=== PATIENT | male | born 1960 | race Hispanic/Latino ===

== ENCOUNTER 2017-11-18 16:20 | Inpatient (IN) | payer MEDICARE ==
[2017-11-18 16:41] VITALS: BMI 19.5
[2017-11-18] MEDS ORDERED: Docusate 100 MG CAP PO PRN (17:06)
[2017-11-18] MEDS ORDERED: Calcium Carbonate 500 MG ChewTAB PO PRN (17:06)
[2017-11-18] MEDS ORDERED: Ondansetron ODT 4 MG TAB PO PRN (17:47)
[2017-11-18] MEDS: Acetaminophen 325 MG TAB PO PRN (20:34)
[2017-11-18] MEDS: Ferrous Sulfate 325 MG TAB PO SCH (20:34)
[2017-11-18] MEDS: Melatonin 3 MG TAB PO PRN (20:35)
[2017-11-18] MEDS: Famotidine 20 MG TAB PO SCH (20:35)
--- NOTE | 2017-11-18 22:54 | HP ---
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 He was sub sequently found to have primary TB with pneumothorax on admission to [facility]. He was seen by In fectious Disease and Pulmonary, had a chest tube placed with a Heimlich valve. 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 Appeared to be getti ng stronger, but was unable to maintain ADLs. Department of Health was ready to take over his care b ecause of his significant weakness and inability to ambulate. He was transferred to [facility] for laminar flow room care and for strengthening in the room. He has continued to hav e an air leak and therefore has required the Heimlich valve and will be followed up by Dr. Frank hickey every week and will be continued on therapy here at [facility] until he is a ble to maintain his ADLs. PAST MEDICAL HISTORY: Otherwise unremarkable other than the cervical lesion. He also has hyperlipid emia. FAMILY MEDICAL HISTORY: Noncontributory. SOCIAL HISTORY: He is living [facility] for 30 years. He has not been to [place] since 2008 . Nonsmoker, nondrinker. ALLERGIES: Has a history of allergies to NONSTEROIDALS. REVIEW OF SYSTEMS: HEENT: Denies any headaches, dizziness, change in vision or hearing, hoarseness, or dysphagia. Does have a poor appetite and has lost 40-50 pounds this year. Pulmonary: See histo ry of present illness. He has cough, some white sputum production. No hemoptysis. Only minimal ann[address] st pain. No shortness of breath at rest, but on exertion. Cardiovascular: Denies chest pain, ortho pnea, paroxysmal nocturnal dyspnea, or edema. Gastrointestinal: Denies nausea, vomiting, diarrhea, constipation, abdominal pain. Genitourinary: Denies dysuria, hematuria, nocturia. Musculoskeletal: Has diffuse weakness, particularly in his legs with inability to walk without a walker, and now bec ause of his weakness, cannot handle a walker. Neurologic: Denies localized numbness or weakness in arms or extremities. LABORATORY AND X-RAY FINDINGS: Previously at [facility] 2 days ago showed a white count of 8300, hem atocrit 32, hemoglobin 9.8, platelet count 807,000. Sodium 133, potassium 4.1, chloride 100, bicarbo shana 26, BUN 15, creatinine 0.73, glucose 106, ferritin 892, iron saturation 7%, total iron 108, iron level of 8. He has also been found to have anemia of chronic disease and reactive thrombocytosis, w hich has improved with IV transfusion in the hospital. ASSESSMENT AND PLAN: 1. 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 We will monitor closely, follow with Dr. Johnson, continue in laminar flow isolation. Start PT/OT in the room. Continue on 4-drug therapy. 2. Reactive thrombocytosis and anemia of chronic disease. We will follow closely. 3. Chronic quadriparesis possibly limiting therapy, but we will monitor closely with therapy. We wi ll plan CBC, comp metabolic in the a.m. Continue 4-drug therapy. PT/OT consult.
[2017-11-19 05:33] LABS: ALT (SGPT) 17 U/L (8-55); AST (SGOT) 30 U/L (5-34); Albumin 2.8 g/dL (3.5-5.0); Alkaline Phosphatase 137 U/L (40-150); Anion Gap 14 mmol/L (10-20); BUN (Urea Nitrogen) 14 mg/dL (8.4-25.7); Bilirubin, Total 0.5 mg/dL (0.2-1.2); Calc. Creatinine Clearance 89 mL/min (70-130); Calcium 9.8 mg/dL (7.8-10.44); Carbon Dioxide 22 mmol/L (22-29); Chloride 101 mmol/L (98-107); Estimated GFR-MDRD Greater than 90; Globulin 5.1 g/dL (2.4-3.5); Glucose 94 mg/dL (70-105); Potassium 4.4 mmol/L (3.5-5.1); Protein, Total 7.9 g/dL (6.0-8.3); Sodium 133 mmol/L (136-145)
[2017-11-19 05:35] LABS: Band 12 % (5-11); Eosinophils 2 % (0-10); Hemoglobin 9.9 g/dL (14.0-18.0); Hypochromia SLIGHT = 6-15 cells (100X) (0-5/hpf); Lymphocytes 10 % (21-51); MDiff Complete? YES; Mean Corpuscular HGB CONC 29.2 g/dL (32.0-36.0); Mean Corpuscular Hemoglobin 20.6 pg (27.0-31.0); Mean Corpuscular Volume 70.6 fL (78.0-98.0); Mean Platelet Volume 5.3 fL (7.4-10.4); Microcytosis MODERATE=15-30 cells (100X) (0-5/hpf); Monocytes 5 % (0-10); Neutrophil 71 % (42-75); PLT Morphology Comment Appears Increased; Platelet Count 610 thou/uL (130-400); RBC Distribution Width 20.8 % (11.5-14.5); Red Blood Cell (RBC) Count 4.82 mill/uL (4.70-6.10); White Blood Cell (WBC) Count 8.8 thou/uL (4.8-10.8)
--- NOTE | 2017-11-19 08:11 | RAD ---
SINGLE VIEW OF THE CHEST: COMPARISON: 11/18/17. HISTORY: Left pneumothorax. FINDINGS: A single view of the chest shows a normal-size cardiomediastinal silhouette. There is a left-sided c hest tube. There is a small left pleural effusion. A small left pneumothorax is again seen. Increa sed interstitial lung markings are present. Scarring is seen in the apices. IMPRESSION: Stable exam. POS: CET
[2017-11-19] MEDS: Enoxaparin Sodium 40 MG/0.4 ML SYRINGE SC SCH (09:28)
[2017-11-19] MEDS: Famotidine 20 MG TAB PO SCH ×2 (09:29→19:49)
[2017-11-19] MEDS: Rifampin 300 MG CAP PO SCH (09:29)
[2017-11-19] MEDS: Polyethylene Glycol 3350 17 GM Packet PO SCH (09:29)
[2017-11-19] MEDS: Ascorbic Acid 500 mg Chewable Tablet PO SCH (09:29)
[2017-11-19] MEDS: Fish Oil 1,000 MG CAP PO SCH (09:29)
[2017-11-19] MEDS: pyridOXINE 50 MG (B6) TAB PO SCH (09:30)
[2017-11-19] MEDS: Isoniazid 100 MG TAB PO SCH (09:30)
[2017-11-19] MEDS: Ferrous Sulfate 325 MG TAB PO SCH ×2 (09:30→19:49)
[2017-11-19] MEDS: Ethambutol HCl 400 MG TAB PO SCH (09:31)
[2017-11-19] MEDS: Pyrazinamide 500 MG TAB PO SCH (09:31)
[2017-11-19] MEDS: Acetaminophen 325 MG TAB PO PRN (19:49)
[2017-11-19] MEDS: Melatonin 3 MG TAB PO PRN (19:49)
[2017-11-20] MEDS: Acetaminophen 325 MG TAB PO PRN ×3 (02:56→20:54)
--- NOTE | 2017-11-20 08:19 | PRG ---
DATE OF SERVICE: 11/19/2017 SUBJECTIVE: The patient feels well, lying in bed, visiting with family. No shortness of breath or c hest pain. Has good appetite. OBJECTIVE: GENERAL: Physical therapy states the patient is unable to transfer or sit on the side of the bed wit hout assistance. The patient and family confirms that patient was able to walk with a walker, but wa s unable to transfer prior to his illness acutely with TB. VITAL SIGNS: Objective shows vital signs stable with temperature of 98.6, pulse of 96, respirations 18, O2 sats 96 on room air, and blood pressure 117/65. LUNGS: Show decreased breath sounds diffusely. LABORATORY DATA: Laboratory show white count 8800, hematocrit 34, hemoglobin 9.9. Sodium 133, potas sium 4.4, chloride 101, bicarbonate 22, BUN 14, creatinine 0.7, AST 30, ALT 17, albumin 2.8. Chest tube shows minimal liquid drainage with persistent air leak. Discussed the case with pulmonolo gist, Dr. Frank Johnson who states that patient needs to keep the chest tube in until there is no fu rther air leak and would repeat chest x-ray every week, but does not need to see the patient until ch est tube ready to be removed unless symptoms recur. ASSESSMENT: 1. Reactivation tuberculosis with pneumothorax, possibly partially chronic. 2. Severe deconditioning with weight loss and weakness superimposed on underlying chronic quadripare sis. PLAN: 1. Continue PT, OT and attempt to gain ability to assist with ADLs with his family. 2. Continue drug therapy for TB. 3. Continue chest tube with a Heimlich valve until no further air leak.
[2017-11-20] MEDS: Enoxaparin Sodium 40 MG/0.4 ML SYRINGE SC SCH (08:59)
[2017-11-20] MEDS: Fish Oil 1,000 MG CAP PO SCH (08:59)
[2017-11-20] MEDS: Polyethylene Glycol 3350 17 GM Packet PO SCH (08:59)
[2017-11-20] MEDS: Ascorbic Acid 500 mg Chewable Tablet PO SCH (08:59)
[2017-11-20] MEDS: Rifampin 300 MG CAP PO SCH (09:00)
[2017-11-20] MEDS: pyridOXINE 50 MG (B6) TAB PO SCH (09:00)
[2017-11-20] MEDS: Pyrazinamide 500 MG TAB PO SCH (09:00)
[2017-11-20] MEDS: Ethambutol HCl 400 MG TAB PO SCH (09:00)
[2017-11-20] MEDS: Famotidine 20 MG TAB PO SCH ×2 (09:00→20:54)
[2017-11-20] MEDS: Ferrous Sulfate 325 MG TAB PO SCH (09:00)
[2017-11-20] MEDS: Isoniazid 100 MG TAB PO SCH (09:00)
--- NOTE | 2017-11-20 14:53 | RAD ---
PORTABLE CHEST ONE VIEW: History: 57-year-old male with history of follow up left sided pneumothorax. Comparison: 11-19-17 FINDINGS: Left chest tube remains in place with residual left sided pneumothorax. Extensive bilateral upper kwasi g disease with bilateral upper lobe bulla and volume loss with some pleural changes in the left base. Stable from 11-19-17. IMPRESSION: Stable left sided residual pneumothorax and pleural changes in the left base with left chest tube in place. Extensive stable chronic changes in the upper lung zones with volume loss and cavity formation . POS: C
[2017-11-20] MEDS ORDERED: Phenylephrine HCl 0.25% SUPP PR SCH (15:45)
[2017-11-20] MEDS ORDERED: Hydrocortisone Acetate 25 MG Suppository PR SCH (16:30)
--- NOTE | 2017-11-20 19:12 | PRG ---
DATE OF SERVICE: 11/20/2017 SUBJECTIVE: The patient feels well, sitting up in bed. He did have some rectal spasms today, felt p ossibly due to his constipation from his iron, which has been going on for the last 4-5 days. He is cooperating well with therapy with no shortness of breath and is having increasing appetite and stren gth. OBJECTIVE: VITAL SIGNS: Shows blood pressure is stable at 102/64, temperature 98, pulse 70, respirations 20, O2 sats 98%. LUNGS: Clear. CARDIAC: Regular rhythm, no gallops or murmurs. LUNGS: Clear with markedly decreased breath sounds, no rales or rhonchi. ABDOMEN: Soft and nontender. SKIN AND EXTREMITIES: Showed trace edema, no clubbing, cyanosis. NEUROLOGICAL: Intact except for significant weakness in both legs. ASSESSMENT: 1. Stable quadriparesis, resolving reactivation tuberculosis with pneumothorax with chest tube in pl anais. 2. Rectal spasms and constipation, possibly due to iron. PLAN: Discontinue iron, order AFB culture and smear monitoring. Continue four drug therapy. Give A nusol suppository for rectal spasm.
[2017-11-20] MEDS: Melatonin 3 MG TAB PO PRN (20:54)
[2017-11-21] MEDS: Acetaminophen 325 MG TAB PO PRN ×3 (00:37→21:05)
[2017-11-21] MEDS: Isoniazid 100 MG TAB PO SCH (09:41)
[2017-11-21] MEDS: Pyrazinamide 500 MG TAB PO SCH (09:41)
[2017-11-21] MEDS: Ascorbic Acid 500 mg Chewable Tablet PO SCH (09:42)
[2017-11-21] MEDS: Ethambutol HCl 400 MG TAB PO SCH (09:42)
[2017-11-21] MEDS: Rifampin 300 MG CAP PO SCH (09:43)
[2017-11-21] MEDS: Famotidine 20 MG TAB PO SCH ×2 (09:43→21:05)
[2017-11-21] MEDS: Fish Oil 1,000 MG CAP PO SCH (09:43)
[2017-11-21] MEDS: Polyethylene Glycol 3350 17 GM Packet PO SCH (09:43)
[2017-11-21] MEDS: pyridOXINE 50 MG (B6) TAB PO SCH (09:43)
[2017-11-21] MEDS: Baclofen 10 MG TAB PO SCH ×2 (09:43→21:05)
[2017-11-21] MEDS: Enoxaparin Sodium 40 MG/0.4 ML SYRINGE SC SCH (09:43)
[2017-11-21] MEDS: Acetaminophen/Codeine 30-300mg Tablet PO PRN (17:19)
[2017-11-21] MEDS: Melatonin 3 MG TAB PO PRN (21:05)
[2017-11-22] MEDS: Acetaminophen/Codeine 30-300mg Tablet PO PRN ×3 (04:03→16:22)
[2017-11-22] MEDS: Ascorbic Acid 500 mg Chewable Tablet PO SCH (08:31)
[2017-11-22] MEDS: Enoxaparin Sodium 40 MG/0.4 ML SYRINGE SC SCH (08:31)
[2017-11-22] MEDS: Baclofen 10 MG TAB PO SCH ×2 (08:31→20:59)
[2017-11-22] MEDS: Isoniazid 100 MG TAB PO SCH ×2 (08:32→10:53)
[2017-11-22] MEDS: Ethambutol HCl 400 MG TAB PO SCH (08:32)
[2017-11-22] MEDS: Famotidine 20 MG TAB PO SCH ×2 (08:32→20:59)
[2017-11-22] MEDS: Fish Oil 1,000 MG CAP PO SCH (08:32)
[2017-11-22] MEDS: Polyethylene Glycol 3350 17 GM Packet PO SCH (08:33)
[2017-11-22] MEDS: Pyrazinamide 500 MG TAB PO SCH ×2 (08:33→10:52)
[2017-11-22] MEDS: Rifampin 300 MG CAP PO SCH (08:34)
[2017-11-22] MEDS: pyridOXINE 50 MG (B6) TAB PO SCH (08:34)
[2017-11-22] MEDS: Acetaminophen 325 MG TAB PO PRN ×2 (14:15→20:59)
--- NOTE | 2017-11-22 15:26 | PRG ---
DATE OF SERVICE: 11/22/2017 SUBJECTIVE: Mr. Matson is doing well except for some muscle cramping. The baclofen and the Tylenol #3 helps a little bit, but he still has the pain. He is tolerating his medications. No other bobo rns or questions. No fever, chills, night sweats, weight loss since admission. OBJECTIVE: VITAL SIGNS: He is afebrile, heart rate 83, respirations 18, oxygen saturation 97% on room air, bloo d pressure 103/64. CARDIOVASCULAR: S1, S2 plus. RESPIRATORY SYSTEM: Normal vesicular breath sounds. ABDOMEN: Soft, nontender, bowel sounds heard in all quadrants. EXTREMITIES: Without cyanosis or clubbing. Peripheral pulses are palpable. CENTRAL NERVOUS SYSTEM: Generalized weakness with some muscle spasticity. IMPRESSION: 1. 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 2. Reactivation of pulmonary tuberculosis. 3. Reactive thrombocytosis. 4. Hyponatremia. 5. Anemia of chronic disease, microcytic. PLAN: 1. Continue medications for his tuberculosis. 2. Continue airborne precautions. 3. Trial of Valium 5 mg b.i.d. for his muscle spasticity. 4. Recheck laboratory values including iron and ferritin. 5. Stool occult. 6. Nutritional support. 7. I discussed with the patient and nursing in detail. All questions answered.
[2017-11-22] MEDS: Diazepam 5 MG TAB PO SCH ×2 (16:22→21:00)
[2017-11-22] MEDS: Melatonin 3 MG TAB PO PRN (20:59)
[2017-11-23] MEDS: Acetaminophen 325 MG TAB PO PRN ×3 (03:30→17:31)
[2017-11-23] MEDS: Baclofen 10 MG TAB PO SCH ×2 (08:11→20:37)
[2017-11-23] MEDS: Ascorbic Acid 500 mg Chewable Tablet PO SCH (08:11)
[2017-11-23] MEDS: Enoxaparin Sodium 40 MG/0.4 ML SYRINGE SC SCH (08:12)
[2017-11-23] MEDS: Diazepam 5 MG TAB PO SCH ×2 (08:12→20:37)
[2017-11-23] MEDS: Ethambutol HCl 400 MG TAB PO SCH (08:12)
[2017-11-23] MEDS: Famotidine 20 MG TAB PO SCH ×2 (08:13→20:37)
[2017-11-23] MEDS: Polyethylene Glycol 3350 17 GM Packet PO SCH (08:13)
[2017-11-23] MEDS: Pyrazinamide 500 MG TAB PO SCH (08:13)
[2017-11-23] MEDS: Fish Oil 1,000 MG CAP PO SCH (08:13)
[2017-11-23] MEDS: Isoniazid 100 MG TAB PO SCH (08:13)
[2017-11-23] MEDS: Rifampin 300 MG CAP PO SCH (08:14)
[2017-11-23] MEDS: pyridOXINE 50 MG (B6) TAB PO SCH (08:14)
[2017-11-23] MEDS: Acetaminophen/Codeine 30-300mg Tablet PO PRN (08:14)
--- NOTE | 2017-11-23 15:27 | PRG ---
DATE OF SERVICE: 11/23/2017 SUBJECTIVE: Mr. Matson is doing well. The Valium seems to be helping. His family told nursing that they want to take him home tomorrow. No concerns or questions. A urinalysis was done secondary to some dysuria. No fever or chills. No hematuria. OBJECTIVE: VITAL SIGNS: He is afebrile, heart rate 87, respirations 20, oxygen saturation 96% on room air, bloo d pressure 116/65. CARDIOVASCULAR SYSTEM: S1 and S2 plus. RESPIRATORY SYSTEM: Normal vesicular breath sounds. ABDOMEN: Soft, nontender, bowel sounds heard in all quadrants. EXTREMITIES: Without cyanosis or clubbing. Chest tube site is healthy and intact. IMPRESSION: 1. Reactivated tuberculosis. 2. 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 3. Reactive thrombocytosis. 4. Hyponatremia. 5. Microcytic anemia. PLAN: 1. Recheck laboratory values in the morning. 2. Continue Valium. 3. Await urinalysis. 4. Chest tube care. 5. Physical therapy. 6. Continue isolation. 7. Dr. Horne back tonight.
[2017-11-23 18:48] LABS: Bilirubin Negative (Negative); Blood, Urine Negative (Negative); Clarity Clear (Clear); Glucose, Urine (Dipstick) Negative (Negative); Leukocyte Negative (Negative); Nitrite Negative (Negative); Protein, Urine (Dipstick) Negative (Neg-Trace); Specific Gravity, Urine 1.025 (1.005-1.030)
[2017-11-23 19:05] LABS: Bacteria/HPF None Seen HPF (None Seen); RBC/HPF None Seen HPF (0-3); Squamous Epithelial 0-3 HPF (0-3); WBC/HPF None Seen HPF (0-3)
[2017-11-24] MEDS: Acetaminophen/Codeine 30-300mg Tablet PO PRN (01:31)
[2017-11-24 05:13] LABS: #Basophils 0.1 thou/uL (0.0-0.2); #Eosinphils 0.5 thou/uL (0.0-0.7); #Lymphocytes 1.6 thou/uL (1.20-3.40); #Monocytes 0.6 thou/uL (0.11-0.59); #Neutrophils 6.5 thou/uL (1.40-6.50); %Basophils 0.8 % (0.0-1.0); %Lymphocytes 17.4 % (21.0-51.0); %Monocytes 6.5 % (0.0-10.0); %Neutrophils 70.3 % (42.0-75.0); Hemoglobin 10.2 g/dL (14.0-18.0); Hypochromia MODERATE=16-30 cells (100X) (0-5/hpf); MDiff Complete? YES; Mean Corpuscular HGB CONC 30.7 g/dL (32.0-36.0); Mean Corpuscular Hemoglobin 21.5 pg (27.0-31.0); Mean Corpuscular Volume 70.2 fL (78.0-98.0); Mean Platelet Volume 5.2 fL (7.4-10.4); Microcytosis MODERATE=15-30 cells (100X) (0-5/hpf); PLT Morphology Comment Appears Increased; Platelet Count 449 thou/uL (130-400); RBC Distribution Width 19.4 % (11.5-14.5); Red Blood Cell (RBC) Count 4.73 mill/uL (4.70-6.10); White Blood Cell (WBC) Count 9.3 thou/uL (4.8-10.8)
[2017-11-24 05:28] LABS: Anion Gap 14 mmol/L (10-20); BUN (Urea Nitrogen) 16 mg/dL (8.4-25.7); Calc. Creatinine Clearance 91 mL/min (70-130); Calcium 9.8 mg/dL (7.8-10.44); Carbon Dioxide 21 mmol/L (22-29); Chloride 105 mmol/L (98-107); Estimated GFR-MDRD Greater than 90; Glucose 161 mg/dL (70-105); Potassium 3.8 mmol/L (3.5-5.1); Sodium 136 mmol/L (136-145)
[2017-11-24] MEDS: Polyethylene Glycol 3350 17 GM Packet PO SCH (09:06)
[2017-11-24] MEDS: Enoxaparin Sodium 40 MG/0.4 ML SYRINGE SC SCH (09:06)
[2017-11-24] MEDS: Ethambutol HCl 400 MG TAB PO SCH (09:06)
[2017-11-24] MEDS: Isoniazid 100 MG TAB PO SCH (09:06)
[2017-11-24] MEDS: Pyrazinamide 500 MG TAB PO SCH (09:06)
[2017-11-24] MEDS: Ascorbic Acid 500 mg Chewable Tablet PO SCH (09:07)
[2017-11-24] MEDS: Famotidine 20 MG TAB PO SCH ×2 (09:07→20:23)
[2017-11-24] MEDS: pyridOXINE 50 MG (B6) TAB PO SCH (09:07)
[2017-11-24] MEDS: Rifampin 300 MG CAP PO SCH (09:07)
[2017-11-24] MEDS: Fish Oil 1,000 MG CAP PO SCH (09:07)
[2017-11-24] MEDS: Baclofen 10 MG TAB PO SCH ×2 (09:08→20:22)
[2017-11-24] MEDS: Diazepam 5 MG TAB PO SCH ×2 (09:08→20:22)
--- NOTE | 2017-11-24 12:42 | PRG ---
DATE OF SERVICE: 11/24/2017 SUBJECTIVE: The patient is lying in bed, resting well with no complaints, decreased spasms ____, who states that he is wanting to go home, as he feels he could do as much therapy at home. OBJECTIVE: Shows, LUNGS: Clear. CARDIAC EXAMINATION: Shows regular rhythm. ABDOMEN: Soft and nontender. VITAL SIGNS: Temperature is 98, pulse 97, respirations 22, O2 saturations 97% on room air, blood pre ssure is 114/67. LABORATORY DATA: White count is 9300, hematocrit 33, hemoglobin 10. Sodium is 136, potassium 3.8, c hloride 105, bicarbonate 21, BUN 16, creatinine 0.8, glucose 161, calcium 9.8. ASSESSMENT: 1. Reactivation tuberculosis with a pneumothorax with persistent air leak with chest tube in place w ith Heimlich valve. 2. Severe deconditioning, improving slightly. 3. Chronic quadriparesis, cooperating with therapy, but minimal improvement. PLAN: Continue 4-drug therapy. Discuss with PT, discuss with family, discuss with home health, and prepare for discharge tomorrow.
[2017-11-24] MEDS: Acetaminophen 325 MG TAB PO PRN (13:53)
[2017-11-24 17:38] LABS: Iron 27 ug/dL (65-175)
[2017-11-25] MEDS: Acetaminophen/Codeine 30-300mg Tablet PO PRN ×2 (01:22→13:22)
[2017-11-25] MEDS: Ascorbic Acid 500 mg Chewable Tablet PO SCH (08:22)
[2017-11-25] MEDS: pyridOXINE 50 MG (B6) TAB PO SCH (08:22)
[2017-11-25] MEDS: Rifampin 300 MG CAP PO SCH (08:23)
[2017-11-25] MEDS: Diazepam 5 MG TAB PO SCH (08:23)
[2017-11-25] MEDS: Fish Oil 1,000 MG CAP PO SCH (08:23)
[2017-11-25] MEDS: Pyrazinamide 500 MG TAB PO SCH (08:23)
[2017-11-25] MEDS: Isoniazid 100 MG TAB PO SCH (08:23)
[2017-11-25] MEDS: Famotidine 20 MG TAB PO SCH (08:23)
[2017-11-25] MEDS: Baclofen 10 MG TAB PO SCH (08:23)
[2017-11-25] MEDS: Ethambutol HCl 400 MG TAB PO SCH (08:23)
[2017-11-25] MEDS: Polyethylene Glycol 3350 17 GM Packet PO SCH (08:24)
[2017-11-25] MEDS: Enoxaparin Sodium 40 MG/0.4 ML SYRINGE SC SCH (08:24)
[2017-11-25 18:56] VITALS: BP 107/66; TEMP 98.8
--- NOTE | 2017-11-25 19:24 | RAD ---
FRONTAL VIEW CHEST: Date: 11/25/17 COMPARISON: 11/20/17. CLINICAL HISTORY: Chest tube evaluation. FINDINGS: Left side thoracostomy remains in place with tip projecting at the lateral left apex. There has been slight increase with regard to pleural fluid on the left. Pneumothorax component has decreased. There is bilateral interstitial and alveolar opacification. There is prominence of the subacromial space o n the right, some of which may be due to patient positioning. Correlate clinically. IMPRESSION: 1. Left side thoracostomy remains. There has been slight increase with regard to volume of left pleu ral fluid and slight decrease in volume of left pneumothorax. 2. Persistent bilateral interstitial and alveolar opacities, which have progressed and remain promin ent at the upper lung zones bilaterally. Recommend continued follow-up. POS: JOSÉ MIGUEL
== END 2017-11-25 20:20 | disposition home health service (06) | DRG 947 ==
LOC: NAV ACUTE 16:20
PROVIDERS: ADMIT Internal Medicine; ATTEND Internal Medicine
DX: R53.1 Weakness (principal); G82.50 Quadriplegia, unspecified; A15.0 Tuberculosis of lung; E87.1 Hypo-osmolality and hyponatremia; Z99.3 Dependence on wheelchair; E78.5 Hyperlipidemia, unspecified; D63.8 Anemia in other chronic diseases classified elsewhere; D47.3 Essential (hemorrhagic) thrombocythemia
CPT/HCPCS: 36415; 71045; 80048; 80053; 81001; 82728; 83540; 85007; 85025; 85027; J1650

== ENCOUNTER 2017-11-28 15:43 | Inpatient (IN) | payer MEDICARE ==
[2017-11-28 15:56] VITALS: BMI 18.2
[2017-11-28] MEDS ORDERED: Ondansetron ODT 4 MG TAB PO PRN (17:08)
[2017-11-28] MEDS ORDERED: Melatonin 3 MG TAB PO PRN (17:08)
[2017-11-28] MEDS ORDERED: traMADol HCl 50 MG TAB PO SCH ×2 (17:15→21:00)
[2017-11-28] MEDS ORDERED: Acetaminophen 325 MG TAB PO PRN (17:16)
[2017-11-28] MEDS ORDERED: Calcium Carbonate 500 MG ChewTAB PO PRN (17:16)
[2017-11-28] MEDS ORDERED: Docusate 100 MG CAP PO PRN (17:17)
[2017-11-28] MEDS ORDERED: INFLUENZA VACCINE FS SCH (18:45)
[2017-11-28] MEDS ORDERED: Famotidine 20 MG TAB PO SCH (21:00)
--- NOTE | 2017-11-28 23:16 | HP ---
DATE OF ADMISSION: 11/28/2017 HISTORY OF PRESENT ILLNESS: Mr. Matson is a 57-year-old male that was recently admitted to [facility] with spontaneous pneumothorax. He was found to have tuberculosis and was treated accordingly. He was transferred to [facility] swing bed for several days of anti-tuberculosis medications. He was stabilized and actually improved and was discharged to the care of his family. The patient went home with his family and got progressively worse and they are absolutely unable to take care of him at this time. He presented back to [facility] where Dr. Vanegas saw him and pulled his chest tube. It was felt that he needed continued therapy and most likely swing bed care and so therefore he was admitted back to [facility] swing bed under the care of Dr. Melchor Horne. PAST MEDICAL HISTORY: 1. 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 Because of that, he has been wheelchair and walker written. 2. He also has a history of hyperlipidemia. 3. Recent active TB. 4. Recent spontaneous left-sided pneumothorax with chest tube placement. PAST SURGICAL HISTORY: The patient's only surgery that has ever has been a chest tube placement. FAMILY HISTORY: Unremarkable. SOCIAL HISTORY: Reveals patient lives with his . He has been wheelchair bound for many years and sometimes he is able to use a walker, but not recently. The patient denies tobacco, alcohol, or any drug use. He is disabled. His PCP is Dr. Alston. MEDICATIONS: See admit orders. REVIEW OF SYSTEMS: Reveal the patient denies fever, chills, but has extreme fatigue. Denies any vision changes. Denies any rhinorrhea, cough, cold, nasal congestion. Denies any respiratory problems including shortness of breath or wheezing, bronchitis or pneumonia. CARDIOVASCULAR: Denies any chest pain, palpitations, racing or skipping heartbeat or edema. GASTROINTESTINAL: He denies nausea, vomiting, diarrhea, constipation, bloody or black tarry stools. GENITOURINARY: Denies dysuria, frequency, urgency or incontinence. EXTREMITIES: Reveals complains of back pain, but denies significant arthritic problems. NEUROLOGIC: The patient has no significant focal deficits, just generalized weakness, most likely cervical neck injury or lesion many years ago. SKIN: Denies any rashes or lesions. PHYSICAL EXAMINATION: GENERAL: This is a well-developed, well-nourished, alert, oriented x3 male that speaks Kyrgyz fairly well. HEENT: Reveals normocephalic, nontraumatic cranium. Pupils are equally round and reactive. Extraocular movements are intact. Nose and throat are slightly moist. NECK: Supple, without masses, nodes or bruits. No jugular venous distention is noted. HEART: Reveals a regular rate and rhythm without murmurs, gallops or rubs. LUNGS: Clear to auscultation. The patient is bandaged over his left lateral 5th-6th ribs where his chest tube was removed earlier today. He has no rales, rhonchi or wheezes. ABDOMEN: Soft and nontender without organomegaly. Normal bowel sounds are noted. No rebound or guarding is noted. : Deferred. EXTREMITIES: Reveal significant weakness. He barely lift his arm off the bed. He has weakness in lower extremities also. He has significant decrease in tone. He has trace edema in both lower extremities. He has no significant rashes or lesions. PSYCHIATRIC: He is not significantly depressed or anxious. He is oriented to person, place, time, and situation. ASSESSMENT: 1. Active TB, needs for drug therapy. 2. Hyperlipidemia. 3. Generalized weakness with patient unable to accomplish any of his ADLs. 4. Recent primary spontaneous left pneumothorax with chest tube removed today. 5. Lower extremity edema which has gone from +1-2 down to trace. 6. History of spinal cord lesion 8+ years ago, which has left him significantly weak. PLAN: 1. The patient is transferred to [facility] for physical therapy and occupational therapy to increase his strength and his stamina. 2. We will continue his present course of 4 drug anti-tuberculosis medications. 3. The patient will continue hyperlipidemia medications. 4. Encourage the patient to eat and drink and participate fully in physical therapy and occupational therapy, and possibly even speech therapy. [facility]
[2017-11-29] MEDS ORDERED: Calcium Carbonate 500 MG ChewTAB PO PRN (06:11)
[2017-11-29] MEDS ORDERED: Non-Formulary Item 1 EACH (Acetaminophen [Tylenol] 650 MG) PO PRN (06:11)
[2017-11-29] MEDS ORDERED: Docusate 100 MG CAP PO PRN (06:11)
[2017-11-29] MEDS ORDERED: Ondansetron ODT 4 MG TAB PO PRN (06:11)
[2017-11-29] MEDS: Isoniazid 100 MG TAB PO SCH (07:30)
--- NOTE | 2017-11-29 07:41 | PRG ---
DATE OF SERVICE: 11/29/2017 DATE OF ADMISSION: 11/28/2017 HISTORY OF PRESENT ILLNESS: Mr. Matson is a 57-year-old white male that initially presented to [facility] with spontaneous pneumothorax. He was found to have TB and was transferred to [facility] for anti-tuberculosis medications. He was stabilized and he was doing well. He was discharged to the care of his family. Unfortunately, he became much weaker, was unable to walk a nd spent most of his time in his wheelchair. He returned to the emergency room where he saw Dr. Rosales gould, who pulled his chest tube out and felt that he needed continued therapy to increase his strength and his stamina before he go home. He was admitted to [facility] swing bed under e care of Dr. Melchor Horne. SUBJECTIVE: The patient states he rested well last night and is already a little hungry this morning , awaiting for his breakfast. He has no complaints of pain. He has no shortness of breath. OBJECTIVE: VITAL SIGNS: Today, reveal blood pressure this morning actually is not available yet this morning, b lood pressure last night 122/74; pulse 98; respirations 18-20; O2 sat 96%-97% on room air; T-max 98.2 LABORATORY DATA: Labs yesterday reveal white count 8800, hemoglobin 10.6, hematocrit 34.0, platelet count 426,000. D-dimer is 1.67, which is slightly elevated. Chemistry: Sodium 134, potassium 3.8, chloride 101, carbon dioxide 24 with a BUN 18, creatinine 0.71 . PHYSICAL EXAMINATION: GENERAL: This is a well-developed, well-nourished, thin male, in no apparent distress at th is time. HEENT: Reveals normocephalic, nontraumatic cranium. The pupils are equally round and reactive. Ext raocular movements intact. Nose and throat are slightly dry, but clear. NECK: Supple, without mass, nodes, or bruits. LUNGS: The chest is clear to auscultation. No rales, rhonchi, wheezes, or cough is noted. The kasey ent has a bandage over the left lateral 5th through 6th ribs, where his chest tube was removed rayna dill yesterday. He has no rales, rhonchi, or wheezes. CARDIOVASCULAR: Reveals a regular rate and rhythm without murmurs, gallops, or rubs. ABDOMEN: Soft, scaphoid, nontender, without organomegaly. Normal bowel sounds are heard in all 4 qu adrants. No rebound or guarding is noted. GENITOURINARY EXAM: Deferred. EXTREMITIES: Reveal the patient has significant bilateral weakness secondary to a cervical neck lesi on in the distant past. IMPRESSION: 1. Active tuberculosis, needs continued 4-drug therapy. 2. Hyperlipidemia. 3. Generalized weakness. 4. Recent primary spontaneous left pneumothorax with the chest tube removed yesterday. 5. Trace lower extremity edema. 6. Spinal cord lesion, 8 plus years ago that gives him generalized weakness. PLAN: 1. Continue to give him his 4-drug anti-tuberculosis medication. 2. Encouraged the patient to eat and drink. 3. Encouraged the patient to participate fully in physical therapy and occupational therapy. 4. Continue supportive care.
[2017-11-29] MEDS ORDERED: Ferrous Sulfate 325 MG TAB PO SCH (08:00)
[2017-11-29] MEDS: Enoxaparin Sodium 40 MG/0.4 ML SYRINGE SC SCH (08:36)
[2017-11-29] MEDS: pyridOXINE 50 MG (B6) TAB PO SCH (08:37)
[2017-11-29] MEDS: Polyethylene Glycol 3350 17 GM Packet PO SCH (08:37)
[2017-11-29] MEDS: Rifampin 300 MG CAP PO SCH (08:37)
[2017-11-29] MEDS: Famotidine 20 MG TAB PO SCH ×2 (08:37→21:08)
[2017-11-29] MEDS: Ferrous Sulfate 325 MG TAB PO SCH ×2 (08:47→16:05)
[2017-11-29] MEDS: Fish Oil 1,000 MG CAP PO SCH (08:47)
[2017-11-29] MEDS: Pyrazinamide 500 MG TAB PO SCH (08:48)
[2017-11-29] MEDS: Ethambutol HCl 400 MG TAB PO SCH (08:49)
[2017-11-29] MEDS ORDERED: Rifampin 300 MG CAP PO SCH (09:00)
[2017-11-29] MEDS ORDERED: Enoxaparin Sodium 40 MG/0.4 ML SYRINGE SC SCH (09:00)
[2017-11-29] MEDS ORDERED: Pyrazinamide 500 MG TAB PO SCH (09:00)
[2017-11-29] MEDS ORDERED: Polyethylene Glycol 3350 17 GM Packet PO SCH (09:00)
[2017-11-29] MEDS ORDERED: Ascorbic Acid 500 mg Chewable Tablet PO SCH ×2 (09:00)
[2017-11-29] MEDS ORDERED: Ethambutol HCl 400 MG TAB PO SCH (09:00)
[2017-11-29] MEDS ORDERED: traMADol HCl 50 MG TAB PO SCH (09:00)
[2017-11-29] MEDS ORDERED: pyridOXINE 50 MG (B6) TAB PO SCH (09:00)
[2017-11-29] MEDS ORDERED: Fish Oil 1,000 MG CAP PO SCH (09:00)
[2017-11-29] MEDS ORDERED: Isoniazid 100 MG TAB PO SCH (09:00)
[2017-11-29] MEDS: traMADol HCl 50 MG TAB PO SCH ×2 (16:04→21:08)
[2017-11-29] MEDS: Melatonin 3 MG TAB PO PRN (21:09)
[2017-11-30] MEDS: traMADol HCl 50 MG TAB PO SCH ×4 (05:42→21:39)
[2017-11-30] MEDS: Isoniazid 100 MG TAB PO SCH (07:14)
--- NOTE | 2017-11-30 07:28 | PRG ---
DATE OF SERVICE: 11/30/2017 DATE OF ADMISSION: 11/28/2017 HISTORY OF PRESENT ILLNESS: The patient is a well-developed, well-nourished 57-year-old white male w ho initially presented to emergency room at [facility] with spontaneous pneumothorax. He had a Heiml ich tube placed and was evaluated and found to have active TB. He was stabilized and transferred to [facility] for anti-tuberculosis medications x4. Eventually, he did very well and di scharge to the care of his family, but unfortunately, he was very weak. He is unable to walk and the we were unable to care for him. He represented back to the emergency room where he was seen by Dr. Johnson and pulling out his Heimlich tube because he had reexpanded his lungs. He was stabilized an d sent back to [facility] under the care of Dr. Horne for physical therapy and occ upational therapy to increase his strength and his stamina. SUBJECTIVE: The patient states he is doing well and ate fairly well yesterday. He has no complaints . He has no significant shortness of breath. OBJECTIVE: VITAL SIGNS: Today reveal blood pressure 104/72, pulse 74, respirations 18-20, O2 sat 97% to 98% on room air, T-max 98.4. GENERAL: This is a well-developed, well-nourished, slight of build male, in no apparent dis tress at this time. HEENT: Reveals normocephalic, nontraumatic cranium. Pupils are equally round and reactive. Extraoc ular movements are intact. Nose and throat are still slightly dry, but there are clear NECK: Supple, without masses, nodes or bruits. LUNGS: Chest is clear to auscultation. No rales, no rhonchi, no wheezes are noted. No cough is not ed. The patient's chest wall reveals continued bandaging over the left lateral 5th through 6th ribs where chest tube was removed. CARDIOVASCULAR: Heart reveals a regular rate and rhythm without murmurs, gallops or rubs. ABDOMEN: Soft, nontender, without organomegaly. Somewhat scaphoid. Normal bowel sounds are noted i n all 4 quadrants. No rebound or guarding is noted. : Deferred. EXTREMITIES: Reveal no clubbing, cyanosis or edema. The patient does have significant lower extremi ty weakness and is difficult to raise his legs and arms above gravity. IMPRESSION: 1. Active tuberculosis, needs continued 4-drug therapy, which he is getting. 2. Hyperlipidemia. 3. Generalized weakness. 4. Spontaneous left pneumothorax, now with a chest tube removed. 5. Trace lower extremity edema. 6. Spinal cord lesion, 8 plus years ago that gives him significant upper and lower extremity weaknes s. PLAN: 1. Continue his 4-drug anti-tuberculosis medications. 2. Continue physical therapy and occupational therapy. 3. Encourage the patient to eat and drink. 4. Continue supportive care.
[2017-11-30] MEDS: Enoxaparin Sodium 40 MG/0.4 ML SYRINGE SC SCH (08:46)
[2017-11-30] MEDS: Ascorbic Acid 500 mg Chewable Tablet PO SCH (08:46)
[2017-11-30] MEDS: Ferrous Sulfate 325 MG TAB PO SCH ×2 (08:47→15:55)
[2017-11-30] MEDS: Famotidine 20 MG TAB PO SCH ×2 (08:47→21:39)
[2017-11-30] MEDS: Rifampin 300 MG CAP PO SCH (08:47)
[2017-11-30] MEDS: Fish Oil 1,000 MG CAP PO SCH (08:47)
[2017-11-30] MEDS: pyridOXINE 50 MG (B6) TAB PO SCH (08:48)
[2017-11-30] MEDS: Pyrazinamide 500 MG TAB PO SCH (08:48)
[2017-11-30] MEDS: Ethambutol HCl 400 MG TAB PO SCH (08:49)
[2017-11-30] MEDS: Polyethylene Glycol 3350 17 GM Packet PO SCH (08:49)
[2017-11-30] MEDS: Melatonin 3 MG TAB PO PRN (21:39)
[2017-12-01] MEDS: traMADol HCl 50 MG TAB PO SCH ×4 (04:05→21:02)
--- NOTE | 2017-12-01 07:57 | PRG ---
DATE OF SERVICE: 12/01/2017 SUBJECTIVE: The patient lying in bed, feels well with no complaints of cough, shortness of breath, h emoptysis, chest pain, but is still very weak and unable to do ADLs. OBJECTIVE: VITAL SIGNS: Blood pressure is 110/71, temperature 97.5, pulse 68, respirations 16, O2 sats 96% on r oom air. LUNGS: Lungs show decreased breath sounds diffusely, but no rales or rhonchi. CARDIAC: Shows regular rhythm. SKIN AND EXTREMITIES: Skin and extremities shows an emaciated and atrophic muscles. NEUROLOGIC: Shows diffuse weakness with complete paralysis of the legs and greatly decreased strengt h in the arms. ASSESSMENT: 1. Reactivation tuberculosis on 4-drug therapy with no evidence of infection and has been unable to obtain sputum 2. 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 PLAN: Continue PT, OT. Continue 4-drug therapy. Continue isolation and discuss with nursing admini stration and medical social consultant about placement.
[2017-12-01] MEDS: Isoniazid 100 MG TAB PO SCH (08:18)
[2017-12-01] MEDS: Ascorbic Acid 500 mg Chewable Tablet PO SCH (08:18)
[2017-12-01] MEDS: Enoxaparin Sodium 40 MG/0.4 ML SYRINGE SC SCH (08:19)
[2017-12-01] MEDS: Famotidine 20 MG TAB PO SCH ×2 (08:19→21:02)
[2017-12-01] MEDS: Ferrous Sulfate 325 MG TAB PO SCH ×2 (08:19→15:33)
[2017-12-01] MEDS: Ethambutol HCl 400 MG TAB PO SCH (08:19)
[2017-12-01] MEDS: Fish Oil 1,000 MG CAP PO SCH (08:19)
[2017-12-01] MEDS: Pyrazinamide 500 MG TAB PO SCH (08:20)
[2017-12-01] MEDS: Rifampin 300 MG CAP PO SCH (08:20)
[2017-12-01] MEDS: pyridOXINE 50 MG (B6) TAB PO SCH (08:20)
[2017-12-01] MEDS: Polyethylene Glycol 3350 17 GM Packet PO SCH (08:20)
[2017-12-01] MEDS: Melatonin 3 MG TAB PO PRN (21:02)
[2017-12-02] MEDS: traMADol HCl 50 MG TAB PO SCH ×4 (03:33→21:47)
[2017-12-02] MEDS: Ascorbic Acid 500 mg Chewable Tablet PO SCH (07:50)
[2017-12-02] MEDS: Isoniazid 100 MG TAB PO SCH (07:50)
[2017-12-02] MEDS: Ethambutol HCl 400 MG TAB PO SCH (07:50)
[2017-12-02] MEDS: Ferrous Sulfate 325 MG TAB PO SCH ×2 (07:51→16:29)
[2017-12-02] MEDS: Enoxaparin Sodium 40 MG/0.4 ML SYRINGE SC SCH (07:51)
[2017-12-02] MEDS: Famotidine 20 MG TAB PO SCH ×2 (07:51→21:47)
[2017-12-02] MEDS: Pyrazinamide 500 MG TAB PO SCH (07:52)
[2017-12-02] MEDS: pyridOXINE 50 MG (B6) TAB PO SCH (07:52)
[2017-12-02] MEDS: Fish Oil 1,000 MG CAP PO SCH (07:52)
[2017-12-02] MEDS: Polyethylene Glycol 3350 17 GM Packet PO SCH (07:52)
[2017-12-02] MEDS: Rifampin 300 MG CAP PO SCH (07:52)
[2017-12-02] MEDS: Melatonin 3 MG TAB PO PRN (21:48)
--- NOTE | 2017-12-03 00:27 | PRG ---
DATE OF SERVICE: 12/02/2017 SUBJECTIVE: The patient is a 57-year-old male with a history of reactivation TB with subseq uent pneumothorax, requiring chest tube placement and is now on 4-drug therapy and is stable with no sputum production, but unable to obtain sputum to document. No contagious condition. Therefore, sti ll in isolation. He also is very weak and is minimally cooperating with therapy and will require a t otal assist on discharge, but therapy is working with the patient. OBJECTIVE: VITAL SIGNS: Shows temperature is 96.5, pulse 72, respirations 18, O2 sats 97% on room air. LUNGS: Clear with decreased breath sounds. CARDIOVASCULAR: Showed regular rhythm. ABDOMEN: Soft, nontender. SKIN AND EXTREMITIES: Show cachectic. NEUROLOGIC: Shows diffuse weakness mainly in the legs and arms with incomplete quadriplegia. ASSESSMENT: 1. Reactivation tuberculosis on 4-drug therapy with inability to document sputum 2. Severe deconditioning, chronic from old cervical myelopathy, but worsened with acute illness and inability to maintain ADLs. PLAN: 1. Continue to work with PT, OT as recommended. 2. Continue 4-drug therapy. 3. Continue isolation until obtain negative sputum. 4. Spiritual and social work consult.
[2017-12-03] MEDS: traMADol HCl 50 MG TAB PO SCH ×4 (05:53→22:29)
[2017-12-03] MEDS: Isoniazid 100 MG TAB PO SCH (07:33)
[2017-12-03] MEDS: Ascorbic Acid 500 mg Chewable Tablet PO SCH (08:58)
[2017-12-03] MEDS: pyridOXINE 50 MG (B6) TAB PO SCH (08:58)
[2017-12-03] MEDS: Enoxaparin Sodium 40 MG/0.4 ML SYRINGE SC SCH (08:58)
[2017-12-03] MEDS: Rifampin 300 MG CAP PO SCH (08:58)
[2017-12-03] MEDS: Polyethylene Glycol 3350 17 GM Packet PO SCH (08:58)
[2017-12-03] MEDS: Fish Oil 1,000 MG CAP PO SCH (08:59)
[2017-12-03] MEDS: Famotidine 20 MG TAB PO SCH ×2 (08:59→20:19)
[2017-12-03] MEDS: Ferrous Sulfate 325 MG TAB PO SCH ×2 (08:59→16:35)
[2017-12-03] MEDS: Pyrazinamide 500 MG TAB PO SCH (09:00)
[2017-12-03] MEDS: Ethambutol HCl 400 MG TAB PO SCH (09:01)
--- NOTE | 2017-12-03 17:46 | PRG ---
DATE OF SERVICE: 12/03/2017 SUBJECTIVE: The patient feels same, lying in the bed, very weak, attempting to cooperate with therap y, but not progressing very well. Has no cough, sputum production. OBJECTIVE: VITAL SIGNS: Temperature is 98, pulse 88, respirations 20, O2 sats 96% on room air, blood pressure i s 128/60. GENERAL: Physical Therapy states that the patient is able to sit in a chair; walk 12 feet, 10 feet, and then 4 feet requiring rest breaks for dizziness, but appeared to be somewhat improved today. LUNGS: Clear. CARDIAC: Regular rhythm. ABDOMEN: Soft and nontender. SKIN AND EXTREMITIES: Display no edema, clubbing, cyanosis. In fact, cachectic and atrophic. ASSESSMENT: 1. Resolving reactivation tuberculosis, on 4-drug therapy. 2. Severe deconditioning. 3. 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 PLAN: Continue PT, OT. Repeat CBC, comp met in the a.m. Continue 4-drug therapy. Continue respira tory isolation.
[2017-12-04] MEDS: traMADol HCl 50 MG TAB PO SCH ×4 (05:24→21:45)
[2017-12-04] MEDS: Rifampin 300 MG CAP PO SCH (08:03)
[2017-12-04] MEDS: pyridOXINE 50 MG (B6) TAB PO SCH (08:03)
[2017-12-04] MEDS: Pyrazinamide 500 MG TAB PO SCH (08:03)
[2017-12-04] MEDS: Ethambutol HCl 400 MG TAB PO SCH (08:03)
[2017-12-04] MEDS: Polyethylene Glycol 3350 17 GM Packet PO SCH (08:04)
[2017-12-04] MEDS: Ferrous Sulfate 325 MG TAB PO SCH ×2 (08:04→17:23)
[2017-12-04] MEDS: Fish Oil 1,000 MG CAP PO SCH (08:04)
[2017-12-04] MEDS: Ascorbic Acid 500 mg Chewable Tablet PO SCH (08:04)
[2017-12-04] MEDS: Enoxaparin Sodium 40 MG/0.4 ML SYRINGE SC SCH (08:04)
[2017-12-04] MEDS: Famotidine 20 MG TAB PO SCH ×2 (08:04→21:44)
[2017-12-04] MEDS: Isoniazid 100 MG TAB PO SCH (08:06)
--- NOTE | 2017-12-04 20:53 | PRG ---
DATE OF SERVICE: 12/04/2017 SUBJECTIVE: The patient lying in the bed, visiting with family and discussed the situation with the family. They understand that he is totally unable to go from a lying to a sitting position without t otal assistance and the nurses state that he is even unable to use his urinal; however, when he does sit he can stand and take steps. He is also having some cough productive of white phlegm, no hemopty sis and we will instruct the nurses to check this. OBJECTIVE: VITAL SIGNS: Temperature is 98, pulse is 80, respirations 20, O2 sats 97% on room air, blood pressur e 132/78. HEENT: Dental caries. LUNGS: Clear with decreased breath sounds. CARDIAC: Shows regular rhythm. ABDOMEN: Soft, nontender. SKIN AND EXTREMITIES: Shows atrophic very weak in arms and legs with some contractures of the right arm. ASSESSMENT: 1. Reactivation tuberculosis on 4-drug therapy with no sputum available for AFB as of yet. 2. Chronic cervical myelopathy secondary to old injury with almost incomplete quadriplegia. 3. Severe deconditioning. PLAN: Continue to stress PT, OT and discuss possible [employer] with physical therapy. I stress the n apurvaes need to obtain sputum for AFB as patient is producing small amount of sputum.
[2017-12-04] MEDS: Melatonin 3 MG TAB PO PRN (21:45)
[2017-12-05] MEDS ORDERED: traMADol HCl 50 MG TAB ONE (04:13)
[2017-12-05] MEDS: Isoniazid 100 MG TAB PO SCH (07:30)
[2017-12-05] MEDS: Ethambutol HCl 400 MG TAB PO SCH (08:00)
[2017-12-05] MEDS: Famotidine 20 MG TAB PO SCH ×2 (09:00→21:39)
[2017-12-05] MEDS: Ferrous Sulfate 325 MG TAB PO SCH ×2 (09:00→17:05)
[2017-12-05] MEDS: Fish Oil 1,000 MG CAP PO SCH (09:00)
[2017-12-05] MEDS: Enoxaparin Sodium 40 MG/0.4 ML SYRINGE SC SCH (09:00)
[2017-12-05] MEDS: Polyethylene Glycol 3350 17 GM Packet PO SCH (09:00)
[2017-12-05] MEDS: Pyrazinamide 500 MG TAB PO SCH (09:00)
[2017-12-05] MEDS: Ascorbic Acid 500 mg Chewable Tablet PO SCH (09:00)
[2017-12-05] MEDS: Rifampin 300 MG CAP PO SCH (09:00)
[2017-12-05] MEDS: pyridOXINE 50 MG (B6) TAB PO SCH (09:00)
[2017-12-05] MEDS: traMADol HCl 50 MG TAB PO SCH ×4 (10:00→21:40)
[2017-12-05] MEDS: Melatonin 3 MG TAB PO PRN (21:39)
[2017-12-06] MEDS: traMADol HCl 50 MG TAB PO SCH ×4 (04:02→21:52)
[2017-12-06] MEDS: Isoniazid 100 MG TAB PO SCH (08:08)
[2017-12-06] MEDS: Ferrous Sulfate 325 MG TAB PO SCH ×2 (08:09→17:18)
[2017-12-06] MEDS: Ethambutol HCl 400 MG TAB PO SCH (08:09)
[2017-12-06] MEDS: Enoxaparin Sodium 40 MG/0.4 ML SYRINGE SC SCH (08:09)
[2017-12-06] MEDS: Ascorbic Acid 500 mg Chewable Tablet PO SCH (08:09)
[2017-12-06] MEDS: Famotidine 20 MG TAB PO SCH ×2 (08:09→21:53)
[2017-12-06] MEDS: Rifampin 300 MG CAP PO SCH (08:10)
[2017-12-06] MEDS: Pyrazinamide 500 MG TAB PO SCH (08:10)
[2017-12-06] MEDS: Polyethylene Glycol 3350 17 GM Packet PO SCH (08:10)
[2017-12-06] MEDS: pyridOXINE 50 MG (B6) TAB PO SCH (08:10)
[2017-12-06] MEDS: Fish Oil 1,000 MG CAP PO SCH (08:10)
--- NOTE | 2017-12-06 15:01 | PRG ---
DATE OF SERVICE: 12/06/2017 SUBJECTIVE: Mr. Matson is doing well. Denies any complaints, resting comfortably, tolerating his me dications. No further issues with his muscle spasms. No family at bedside. Discussed with nursing. OBJECTIVE: VITAL SIGNS: He is afebrile, heart rate 75, respirations 18, oxygen saturation 94% on room air, bloo d pressure 115/68. CARDIOVASCULAR: S1, S2 plus. RESPIRATORY: Normal vesicular breath sounds. ABDOMEN: Soft, nontender. Bowel sounds heard in all quadrants. EXTREMITIES: Without cyanosis or clubbing. Peripheral pulses are palpable. CENTRAL NERVOUS SYSTEM: Grossly nonfocal. IMPRESSION: 1. Tuberculosis. 2. Dyslipidemia. 3. Resolved spontaneous pneumothorax. 4. 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 5. Deconditioning. PLAN: 1. Continue current medications. 2. Nutritional support. 3. DVT and stress ulcer prophylaxis. 4. Decubitus precautions. 5. Routine laboratory values. 6. Discussed with nursing and the patient in detail. All questions answered.
[2017-12-06] MEDS: Melatonin 3 MG TAB PO PRN (21:53)
[2017-12-07] MEDS: traMADol HCl 50 MG TAB PO SCH ×4 (04:03→21:48)
[2017-12-07] MEDS: Ferrous Sulfate 325 MG TAB PO SCH ×2 (08:13→17:28)
[2017-12-07] MEDS: Ascorbic Acid 500 mg Chewable Tablet PO SCH (08:13)
[2017-12-07] MEDS: Isoniazid 100 MG TAB PO SCH (08:13)
[2017-12-07] MEDS: Ethambutol HCl 400 MG TAB PO SCH (08:13)
[2017-12-07] MEDS: Rifampin 300 MG CAP PO SCH (08:14)
[2017-12-07] MEDS: Enoxaparin Sodium 40 MG/0.4 ML SYRINGE SC SCH (08:14)
[2017-12-07] MEDS: Famotidine 20 MG TAB PO SCH ×2 (08:14→21:48)
[2017-12-07] MEDS: Fish Oil 1,000 MG CAP PO SCH (08:14)
[2017-12-07] MEDS: Polyethylene Glycol 3350 17 GM Packet PO SCH (08:14)
[2017-12-07] MEDS: pyridOXINE 50 MG (B6) TAB PO SCH (08:14)
[2017-12-07] MEDS: Pyrazinamide 500 MG TAB PO SCH (08:15)
[2017-12-07] MEDS: Melatonin 3 MG TAB PO PRN (21:48)
[2017-12-08] MEDS: traMADol HCl 50 MG TAB PO SCH ×4 (04:07→21:03)
[2017-12-08] MEDS: Ethambutol HCl 400 MG TAB PO SCH ×2 (07:56→08:37)
[2017-12-08] MEDS: Ferrous Sulfate 325 MG TAB PO SCH ×2 (07:56→16:27)
[2017-12-08] MEDS: Ascorbic Acid 500 mg Chewable Tablet PO SCH (07:56)
[2017-12-08] MEDS: Isoniazid 100 MG TAB PO SCH ×2 (07:56→08:36)
[2017-12-08] MEDS: Polyethylene Glycol 3350 17 GM Packet PO SCH (08:37)
[2017-12-08] MEDS: Fish Oil 1,000 MG CAP PO SCH (08:37)
[2017-12-08] MEDS: Rifampin 300 MG CAP PO SCH (08:37)
[2017-12-08] MEDS: Enoxaparin Sodium 40 MG/0.4 ML SYRINGE SC SCH (08:37)
[2017-12-08] MEDS: Famotidine 20 MG TAB PO SCH ×2 (08:38→21:03)
[2017-12-08] MEDS: pyridOXINE 50 MG (B6) TAB PO SCH (08:38)
[2017-12-08] MEDS: Pyrazinamide 500 MG TAB PO SCH (09:06)
[2017-12-08] MEDS: Melatonin 3 MG TAB PO PRN (21:04)
[2017-12-09] MEDS: traMADol HCl 50 MG TAB PO SCH ×4 (04:04→21:14)
[2017-12-09] MEDS: Isoniazid 100 MG TAB PO SCH (07:36)
[2017-12-09] MEDS: Ascorbic Acid 500 mg Chewable Tablet PO SCH (07:38)
[2017-12-09] MEDS: Ferrous Sulfate 325 MG TAB PO SCH ×2 (07:38→16:54)
[2017-12-09] MEDS: Ethambutol HCl 400 MG TAB PO SCH (07:38)
[2017-12-09] MEDS: Rifampin 300 MG CAP PO SCH (09:42)
[2017-12-09] MEDS: Fish Oil 1,000 MG CAP PO SCH (09:42)
[2017-12-09] MEDS: pyridOXINE 50 MG (B6) TAB PO SCH (09:42)
[2017-12-09] MEDS: Pyrazinamide 500 MG TAB PO SCH (09:42)
[2017-12-09] MEDS: Famotidine 20 MG TAB PO SCH ×2 (09:43→20:21)
[2017-12-09] MEDS: Polyethylene Glycol 3350 17 GM Packet PO SCH (09:43)
[2017-12-09] MEDS: Enoxaparin Sodium 40 MG/0.4 ML SYRINGE SC SCH (09:43)
[2017-12-09] MEDS ORDERED: HYPERTONIC SALINE INH SCH (19:00)
--- NOTE | 2017-12-09 20:43 | PRG ---
DATE OF SERVICE: 12/05/2017 SUBJECTIVE: The patient feels well, visiting with family with no complaints. Has been cooperating w ith therapy, but is still very weak. Family has stated that he most likely will require long-term placement if cleared. OBJECTIVE: VITAL SIGNS: Shows temperature is 98.7, pulse 75, respirations 20, O2 sat is 96% on room air, blood pressure 105/63. LUNGS: Clear with decreased breath sounds. CARDIAC: Showed regular rhythm. No gallops or murmurs. ABDOMEN: Soft and nontender. No masses or organomegaly. SKIN/EXTREMITIES: Show no edema, clubbing, cyanosis. NEUROLOGICAL: Intact except for diffuse weakness with quadriplegia incomplete. ASSESSMENT: 1. Reactivation tuberculosis stable, on 4-drug therapy. 2. Incomplete quadriplegia secondary to previous cervical injury, stable. 3. Significant deconditioning, slowly improving. PLAN: Continue PT, OT. Attempt to obtain negative sputum. Discussed long-term placement with darek miller and case management.
--- NOTE | 2017-12-09 20:47 | PRG ---
DATE OF SERVICE: 12/08/2017 SUBJECTIVE: The patient lying in bed, resting and attempting to have sputum stimulated therapy in or miah for him to be cleared for halfway placement. He is cooperating with therapy. OBJECTIVE: VITAL SIGNS: Shows his blood pressure is 107/66, temperature 98, pulse 76, respirations 18, O2 sats 97% on room air. LUNGS: Clear. CARDIAC: Shows regular rhythm. ABDOMEN: Soft and nontender. SKIN AND EXTREMITIES: Display decreased skin turgor or atrophy. NEUROLOGIC: Shows incomplete quadriplegia. ASSESSMENT: 1. Resolving reactivation TB with an attempt to obtain negative sputum AFB x3. 2. Stable cervical myelopathy with incomplete quadriplegia. 3. Severe deconditioning, improving. PLAN: Continue PT, OT. Continue attempt to do sputum. Continue to discuss halfway placement w ith family.
--- NOTE | 2017-12-09 20:49 | PRG ---
DATE OF SERVICE: 12/09/2017 SUBJECTIVE: The patient lying in the bed, cheerful. States that he is eating better. Did walk with therapy somewhat today and feels stronger and did have a sputum today. OBJECTIVE: LUNGS: Clear with decreased breath sounds. CARDIAC: Showed regular rhythm. ABDOMEN: Soft, nontender. SKIN AND EXTREMITIES: Display decreased skin turgor. NEUROLOGIC: Shows incomplete quadriplegia. ASSESSMENT: 1. Resolving reactivation tuberculosis. 2. Improving deconditioning. 3. Chronic incomplete quadriplegia. PLAN: Continue PT, OT, induce sputum for AFB with one obtained today, repeat CBC and comp metabolic in the a.m.
[2017-12-09] MEDS: Melatonin 3 MG TAB PO PRN (21:14)
[2017-12-10] MEDS: traMADol HCl 50 MG TAB PO SCH ×4 (03:24→21:30)
[2017-12-10 05:10] LABS: #Basophils 0.1 thou/uL (0.0-0.2); #Eosinphils 0.7 thou/uL (0.0-0.7); #Lymphocytes 1.8 thou/uL (1.20-3.40); #Monocytes 0.7 thou/uL (0.11-0.59); #Neutrophils 5.9 thou/uL (1.40-6.50); %Basophils 0.7 % (0.0-1.0); %Eosinophils 7.8 % (0.0-10.0); %Lymphocytes 19.1 % (21.0-51.0); %Neutrophils 64.4 % (42.0-75.0); Hemoglobin 11.2 g/dL (14.0-18.0); Hypochromia SLIGHT = 6-15 cells (100X) (0-5/hpf); MDiff Complete? YES; Mean Corpuscular HGB CONC 30.2 g/dL (32.0-36.0); Mean Corpuscular Hemoglobin 21.5 pg (27.0-31.0); Mean Platelet Volume 5.8 fL (7.4-10.4); Microcytosis MODERATE=15-30 cells (100X) (0-5/hpf); PLT Morphology Comment Appears Adequate; Platelet Count 370 thou/uL (130-400); RBC Distribution Width 17.9 % (11.5-14.5); Red Blood Cell (RBC) Count 5.23 mill/uL (4.70-6.10); White Blood Cell (WBC) Count 9.2 thou/uL (4.8-10.8)
[2017-12-10 05:24] LABS: ALT (SGPT) 12 U/L (8-55); AST (SGOT) 20 U/L (5-34); Alkaline Phosphatase 111 U/L (40-150); Anion Gap 13 mmol/L (10-20); BUN (Urea Nitrogen) 25 mg/dL (8.4-25.7); Bilirubin, Total 0.3 mg/dL (0.2-1.2); Calc. Creatinine Clearance 62 mL/min (70-130); Carbon Dioxide 28 mmol/L (22-29); Chloride 102 mmol/L (98-107); Estimated GFR-MDRD 84; Glucose 101 mg/dL (70-105); Potassium 3.9 mmol/L (3.5-5.1); Sodium 139 mmol/L (136-145)
[2017-12-10 05:35] LABS: Calcium 13.4 mg/dL (7.8-10.44)
[2017-12-10] MEDS: Isoniazid 100 MG TAB PO SCH (08:25)
[2017-12-10] MEDS: Ferrous Sulfate 325 MG TAB PO SCH ×2 (08:25→16:47)
[2017-12-10] MEDS: Ascorbic Acid 500 mg Chewable Tablet PO SCH (08:25)
[2017-12-10] MEDS: Ethambutol HCl 400 MG TAB PO SCH (08:25)
[2017-12-10] MEDS: Enoxaparin Sodium 40 MG/0.4 ML SYRINGE SC SCH (08:26)
[2017-12-10] MEDS: Fish Oil 1,000 MG CAP PO SCH (08:26)
[2017-12-10] MEDS: Famotidine 20 MG TAB PO SCH ×2 (08:26→21:29)
[2017-12-10] MEDS: pyridOXINE 50 MG (B6) TAB PO SCH (08:27)
[2017-12-10] MEDS: Pyrazinamide 500 MG TAB PO SCH (08:27)
[2017-12-10] MEDS: Polyethylene Glycol 3350 17 GM Packet PO SCH (08:27)
[2017-12-10] MEDS: Rifampin 300 MG CAP PO SCH (08:27)
--- NOTE | 2017-12-10 16:54 | CT ---
CT OF LUMBAR SPINE WITHOUT CONTRAST: 12/10/17 INDICATION: History of elevated serum calcium with history of TB. COMPARISON: None. FINDINGS: There is partial lumbarization of S1. There is slight grade I anterolisthesis of L5 on S1. No acute f racture or subluxation is evident. No destructive osteolytic or osteoblastic lesion is evident. There is a severely hydronephrotic right kidney. There is diffuse osteopenia. There is a small left pleura l effusion. IMPRESSION: 1. No acute osseous abnormality. 2. Moderate spondylosis of the lumbar spine. 3. Grade I anterolisthesis of L5 on S1. 4. Diffuse osteopenia. 5. Severe hydronephrosis of the right kidney. This appears similar to the comparison CT dated 10/29/17. POS: [facility]
--- NOTE | 2017-12-10 16:59 | CT ---
CT THORACIC SPINE WITHOUT CONTRAST: Date: 12/10/17 INDICATION: Elevated serum calcium with history of TB. FINDINGS: Areas of consolidation and cavitation involving both upper lobes appear largely stable to CT from 07/11. There is small left pleural effusion. Extent of lung disease is difficult to fully evaluate du e to field of view. No acute fracture or subluxation is evident. There is diffuse osteopenia. There i s mild multilevel spondylosis of the thoracic spine. No destructive osseous lesion is grossly evident . IMPRESSION: 1. No destructive osseous lesion or acute fracture demonstrated. 2. Extensive lung parenchymal changes bilaterally consistent with patient's history of TB. 3. Small left pleural effusion. 4. Partial visualization of severely hydronephrotic right kidney. POS: [facility]
[2017-12-10] MEDS: Mirtazapine 30 MG TAB PO SCH (21:29)
[2017-12-10] MEDS: Melatonin 3 MG TAB PO PRN (21:29)
[2017-12-11] MEDS: traMADol HCl 50 MG TAB PO SCH ×4 (04:14→21:02)
[2017-12-11] MEDS: Isoniazid 100 MG TAB PO SCH (08:14)
[2017-12-11] MEDS: Ferrous Sulfate 325 MG TAB PO SCH ×2 (08:15→16:28)
[2017-12-11] MEDS: Ascorbic Acid 500 mg Chewable Tablet PO SCH (08:15)
[2017-12-11] MEDS: Ethambutol HCl 400 MG TAB PO SCH (08:15)
[2017-12-11] MEDS: Enoxaparin Sodium 40 MG/0.4 ML SYRINGE SC SCH (08:16)
[2017-12-11] MEDS: Pyrazinamide 500 MG TAB PO SCH (08:16)
[2017-12-11] MEDS: Fish Oil 1,000 MG CAP PO SCH (08:16)
[2017-12-11] MEDS: Polyethylene Glycol 3350 17 GM Packet PO SCH (08:16)
[2017-12-11] MEDS: Famotidine 20 MG TAB PO SCH ×2 (08:16→21:02)
[2017-12-11] MEDS: pyridOXINE 50 MG (B6) TAB PO SCH (08:16)
[2017-12-11] MEDS: Rifampin 300 MG CAP PO SCH (08:17)
[2017-12-11] MEDS: Mirtazapine 30 MG TAB PO SCH (21:02)
[2017-12-11] MEDS: Melatonin 3 MG TAB PO PRN (21:02)
[2017-12-12] MEDS: traMADol HCl 50 MG TAB PO SCH ×4 (05:00→21:09)
--- NOTE | 2017-12-12 07:43 | PRG ---
DATE OF SERVICE: 12/10/2017 SUBJECTIVE: The patient lying in bed, feels well except he is concerned that he is never going to wa lk again, not able to be able to go home. He is cooperating somewhat with therapy. OBJECTIVE: VITAL SIGNS: Temperature is 96.9, pulse 70, respirations 18, O2 sats 95% on room air, blood pressure 95/62. ABDOMEN: Abdomen is soft and nontender. SKIN AND EXTREMITIES: Display no edema, clubbing, cyanosis, but is atrophic. NEURO: Neurological shows incomplete quadriplegia. LABORATORY: White count 9200, hematocrit 37, hemoglobin 11. Sodium is 139, potassium 3.9, chloride 102, bicarbonate 28, BUN 27, creatinine 0.93, glucose 101, calcium 13.4, AST 20, ALT 12, albumin 3.0, globulin 5.0. PTH less than 4.0. Repeat CT of the lumbar and thoracic spine shows no destructive osseous lesion or acute fracture. Ex tensive lung parenchymal changes consistent with patient's history of TB, severe hydronephrosis of th e right kidney, stable for the last month. Physical Therapy states that the patient is cooperating with therapy, was very weak and depressed and feels a intermediate admission is required. Acid fast bacillus x1 has been obtained and is negative on the smear x2 with the third one pending. ASSESSMENT: 1. Reactivation tuberculosis responding to 4 drug therapy. No evidence for recurrent pneumonia. 2. Severe deconditioning secondary to tuberculosis, superimposed on underlying incomplete quadripleg ia. 3. Incomplete quadriplegia, chronic from old cervical injury limiting therapy. 4. New problem with hypercalcemia, most likely due to tuberculosis. There is no evidence of bony me tastasis or of tuberculosis of the bone or hyperparathyroidism. Awaiting results of serum protein el ectrophoresis and will check vitamin D level. PLAN: I discussed placement with keycase assembler if AFB returns negative x3. Obtain a vitamin D level. Continue PT, OT.
--- NOTE | 2017-12-12 07:46 | PRG ---
DATE OF SERVICE: 12/11/2017 SUBJECTIVE: The patient feels well, he is cooperating with therapy, appears to be less depressed, nichols s been sleeping well and is now on melatonin and mirtazapine. He has had his third sputum obtained, results are pending. OBJECTIVE: VITAL SIGNS: Blood pressure 108/58, temperature 99.5, pulse 92, respirations 18, O2 sats 95% on room air. LUNGS: Lungs are clear with markedly decreased breath sounds. . CARDIAC: Cardiac examination displays regular rhythm, no gallops or murmurs. ABDOMEN: Soft and nontender. SKIN AND EXTREMITIES: Display no edema, clubbing, cyanosis, but markedly atrophic. ASSESSMENT: 1. Resolving reactivation tuberculosis on 4 drug therapy. 2. Severe deconditioning, improving slightly. 3. Chronic incomplete quadriplegia from old cervical injury, stable. 4. Hypercalcemia of unknown etiology, possibly due to tuberculosis and elevated vitamin D and we tien l check level. There is no evidence of elevated PTH or bony metastasis. PLAN: Obtain third AFB. Discuss placement with family and case management. Continue PT, OT. Obtai n vitamin D level.
[2017-12-12] MEDS: Isoniazid 100 MG TAB PO SCH (08:31)
[2017-12-12] MEDS: Ascorbic Acid 500 mg Chewable Tablet PO SCH (08:32)
[2017-12-12] MEDS: Ethambutol HCl 400 MG TAB PO SCH (08:33)
[2017-12-12] MEDS: Ferrous Sulfate 325 MG TAB PO SCH ×2 (08:35→18:20)
[2017-12-12] MEDS: Enoxaparin Sodium 40 MG/0.4 ML SYRINGE SC SCH (08:36)
[2017-12-12] MEDS: Fish Oil 1,000 MG CAP PO SCH (08:38)
[2017-12-12] MEDS: Polyethylene Glycol 3350 17 GM Packet PO SCH (08:38)
[2017-12-12] MEDS: Pyrazinamide 500 MG TAB PO SCH (08:39)
[2017-12-12] MEDS: pyridOXINE 50 MG (B6) TAB PO SCH (08:40)
[2017-12-12] MEDS: Rifampin 300 MG CAP PO SCH (08:40)
[2017-12-12] MEDS: Famotidine 20 MG TAB PO SCH ×2 (08:42→21:09)
[2017-12-12] MEDS: Mirtazapine 30 MG TAB PO SCH (21:10)
[2017-12-12] MEDS: Melatonin 3 MG TAB PO PRN (21:10)
[2017-12-13] MEDS: traMADol HCl 50 MG TAB PO SCH ×4 (05:33→21:38)
[2017-12-13] MEDS: Isoniazid 100 MG TAB PO SCH (07:30)
[2017-12-13] MEDS: Ascorbic Acid 500 mg Chewable Tablet PO SCH (09:38)
[2017-12-13] MEDS: Enoxaparin Sodium 40 MG/0.4 ML SYRINGE SC SCH (09:38)
[2017-12-13] MEDS: Ferrous Sulfate 325 MG TAB PO SCH ×2 (09:38→16:43)
[2017-12-13] MEDS: Rifampin 300 MG CAP PO SCH (09:38)
[2017-12-13] MEDS: Polyethylene Glycol 3350 17 GM Packet PO SCH (09:38)
[2017-12-13] MEDS: Pyrazinamide 500 MG TAB PO SCH (09:39)
[2017-12-13] MEDS: Ethambutol HCl 400 MG TAB PO SCH (09:39)
[2017-12-13] MEDS: Famotidine 20 MG TAB PO SCH ×2 (09:39→21:38)
[2017-12-13] MEDS: Fish Oil 1,000 MG CAP PO SCH (09:39)
[2017-12-13] MEDS: pyridOXINE 50 MG (B6) TAB PO SCH (09:39)
--- NOTE | 2017-12-13 12:08 | PRG ---
DATE OF SERVICE: 12/13/2017 SUBJECTIVE: The patient feels well with no complaints except his chronic weakness, but appears to be getting stronger. He is eating somewhat better. He is having minimal cough and no chest pain or sh ortness of breath at rest. OBJECTIVE: VITAL SIGNS: Shows temperature is 97.9, pulse 84, respirations 18, O2 sats is 97% on room air, blood pressure 112/68. Laboratories show he has 3 sputum, AFB negative. ASSESSMENT: 1. Calcium is still elevated at 12.9 of unknown etiology, most likely due to TB and he has checked a vitamin D level for elevation. 2. Severe and almost complete quadriplegia, secondary to cervical spine injury years ago, with minim al improvement. PLAN: 1. Continue 4-drug therapy for TB. 2. Await results of vitamin D for hypercalcemia. 3. Repeat calcium level in the morning. 4. Discussed placement, with case fitter and group home, next week as AFB negative.
[2017-12-13 15:08] LABS: ALT (SGPT) 13 U/L (8-55); AST (SGOT) 29 U/L (5-34); Albumin 2.9 g/dL (3.5-5.0); Alkaline Phosphatase 113 U/L (40-150); Anion Gap 14 mmol/L (10-20); BUN (Urea Nitrogen) 30 mg/dL (8.4-25.7); Bilirubin, Total 0.6 mg/dL (0.2-1.2); Calc. Creatinine Clearance 44 mL/min (70-130); Carbon Dioxide 23 mmol/L (22-29); Chloride 103 mmol/L (98-107); Estimated GFR-MDRD 56; Glucose 248 mg/dL (70-105); Potassium 3.6 mmol/L (3.5-5.1); Protein, Total 7.9 g/dL (6.0-8.3); Sodium 136 mmol/L (136-145)
[2017-12-13] MEDS: Sodium Chloride 0.9% 1,000 ML IV SCH ×2 (16:44→17:33)
[2017-12-13] MEDS: Mirtazapine 30 MG TAB PO SCH (21:38)
[2017-12-13] MEDS: Melatonin 3 MG TAB PO PRN (21:38)
[2017-12-14] MEDS: traMADol HCl 50 MG TAB PO SCH ×4 (04:17→21:03)
[2017-12-14] MEDS: Isoniazid 100 MG TAB PO SCH (07:30)
[2017-12-14] MEDS: Ethambutol HCl 400 MG TAB PO SCH (08:36)
[2017-12-14] MEDS: Polyethylene Glycol 3350 17 GM Packet PO SCH (08:36)
[2017-12-14] MEDS: Pyrazinamide 500 MG TAB PO SCH (08:36)
--- NOTE | 2017-12-14 08:36 | PRG ---
DATE OF SERVICE: 12/14/2017 SUBJECTIVE: The patient is lying in the bed, feels well, no complaints, no cough, sputum production, only chronic weakness. OBJECTIVE: VITAL SIGNS: Temperature 96.6, pulse 62, respirations 18, O2 sats 99% on room air, blood pressure 11 9/74. LUNGS: Show decreased breath sounds diffusely, but no rales, rhonchi, rubs or wheezes. CARDIAC: Shows regular rhythm. ABDOMEN: Soft, nontender. SKIN AND EXTREMITIES: Showed decreased skin turgor and atrophy of muscles. NEUROLOGIC: Shows incomplete quadriplegia. LABORATORY DATA: Showed yesterday, potassium came back severely elevated at 13.0 with a BUN increase d to 30, creatinine 1.33, GFR down to 56 from 84 mL. Sodium 136, potassium 3.6, felt that he was sig nificantly dehydrated worsening his hypercalcemia and was given 2 liters of saline and then repeat ca lcium was down to 11.8. Phosphorus normal at 3.7. The patient feels better today, and has no compla ints. ASSESSMENT: 1. Reactivation TB with 3 negative AFBs, sputum and we will discontinue isolation. 2. Recurrent hypercalcemia, possibly due to TB, possibly due to vitamin D with levels pending. We w ill discontinue vitamin D and we will continue rehydration with IV fluids. This patient also appears to be having recurrent dehydration. 3. Acute on chronic renal failure, improved with IV fluids and we will repeat BMP today as well as c alcium and may need another liter of saline and we will stress the patient need to continue oral flui d hydration.
[2017-12-14] MEDS: Rifampin 300 MG CAP PO SCH (08:37)
[2017-12-14] MEDS: Fish Oil 1,000 MG CAP PO SCH (08:37)
[2017-12-14] MEDS: Ascorbic Acid 500 mg Chewable Tablet PO SCH (08:37)
[2017-12-14] MEDS: Famotidine 20 MG TAB PO SCH ×2 (08:38→21:03)
[2017-12-14] MEDS: pyridOXINE 50 MG (B6) TAB PO SCH (08:38)
[2017-12-14] MEDS: Ferrous Sulfate 325 MG TAB PO SCH ×2 (08:38→17:08)
[2017-12-14] MEDS: Enoxaparin Sodium 40 MG/0.4 ML SYRINGE SC SCH (08:39)
[2017-12-14 09:07] LABS: Anion Gap 14 mmol/L (10-20); BUN (Urea Nitrogen) 24 mg/dL (8.4-25.7); Calc. Creatinine Clearance 54 mL/min (70-130); Carbon Dioxide 23 mmol/L (22-29); Chloride 111 mmol/L (98-107); Estimated GFR-MDRD 71; Glucose 97 mg/dL (70-105); Potassium 3.5 mmol/L (3.5-5.1); Sodium 144 mmol/L (136-145)
[2017-12-14 09:14] LABS: Calcium 13.1 mg/dL (7.8-10.44)
[2017-12-14] MEDS: Sodium Chloride 0.9% 1,000 ML IV SCH ×2 (10:32→17:08)
[2017-12-14] MEDS ORDERED: Sodium Chloride 0.9% 1,000 ML IV SCH (10:45)
[2017-12-14 17:13] LABS: Anion Gap 11 mmol/L (10-20); BUN (Urea Nitrogen) 23 mg/dL (8.4-25.7); Calc. Creatinine Clearance 55 mL/min (70-130); Calcium 11.7 mg/dL (7.8-10.44); Carbon Dioxide 23 mmol/L (22-29); Chloride 113 mmol/L (98-107); Estimated GFR-MDRD 73; Glucose 131 mg/dL (70-105); Potassium 3.1 mmol/L (3.5-5.1); Sodium 144 mmol/L (136-145)
[2017-12-14] MEDS: Melatonin 3 MG TAB PO PRN (21:04)
[2017-12-14] MEDS: Mirtazapine 30 MG TAB PO SCH (21:04)
[2017-12-15] MEDS: Sodium Chloride 0.9% 1,000 ML IV SCH ×5 (03:39→21:02)
[2017-12-15] MEDS: traMADol HCl 50 MG TAB PO SCH ×4 (04:47→21:01)
[2017-12-15] MEDS: Ascorbic Acid 500 mg Chewable Tablet PO SCH (08:28)
[2017-12-15] MEDS: Isoniazid 100 MG TAB PO SCH (08:28)
[2017-12-15] MEDS: Ethambutol HCl 400 MG TAB PO SCH (08:28)
[2017-12-15] MEDS: Fish Oil 1,000 MG CAP PO SCH (08:29)
[2017-12-15] MEDS: Polyethylene Glycol 3350 17 GM Packet PO SCH (08:29)
[2017-12-15] MEDS: Famotidine 20 MG TAB PO SCH ×2 (08:29→21:01)
[2017-12-15] MEDS: Enoxaparin Sodium 40 MG/0.4 ML SYRINGE SC SCH (08:29)
[2017-12-15] MEDS: Ferrous Sulfate 325 MG TAB PO SCH ×2 (08:29→16:20)
[2017-12-15] MEDS: pyridOXINE 50 MG (B6) TAB PO SCH (08:30)
[2017-12-15] MEDS: Rifampin 300 MG CAP PO SCH (08:30)
[2017-12-15] MEDS: Pyrazinamide 500 MG TAB PO SCH (08:30)
[2017-12-15 10:14] LABS: Anion Gap 14 mmol/L (10-20); BUN (Urea Nitrogen) 17 mg/dL (8.4-25.7); Calc. Creatinine Clearance 53 mL/min (70-130); Calcium 11.3 mg/dL (7.8-10.44); Carbon Dioxide 20 mmol/L (22-29); Chloride 111 mmol/L (98-107); Estimated GFR-MDRD 70; Glucose 145 mg/dL (70-105); Sodium 142 mmol/L (136-145)
[2017-12-15 10:32] LABS: Potassium 2.9 mmol/L (3.5-5.1)
[2017-12-15] MEDS ORDERED: NS 0.9% w/ 40 MEQ KCL 1,000 ML IV SCH (11:00)
[2017-12-15 18:19] LABS: Anion Gap 12 mmol/L (10-20); BUN (Urea Nitrogen) 16 mg/dL (8.4-25.7); Calc. Creatinine Clearance 60 mL/min (70-130); Calcium 11.4 mg/dL (7.8-10.44); Carbon Dioxide 20 mmol/L (22-29); Chloride 110 mmol/L (98-107); Estimated GFR-MDRD 81; Glucose 191 mg/dL (70-105); Potassium 3.5 mmol/L (3.5-5.1); Sodium 138 mmol/L (136-145)
[2017-12-15] MEDS: Mirtazapine 30 MG TAB PO SCH (21:01)
[2017-12-15] MEDS: Melatonin 3 MG TAB PO PRN (21:01)
[2017-12-16] MEDS: Sodium Chloride 0.9% 1,000 ML IV SCH ×4 (04:16→21:00)
[2017-12-16] MEDS: traMADol HCl 50 MG TAB PO SCH ×4 (04:17→20:59)
[2017-12-16] MEDS: Isoniazid 100 MG TAB PO SCH (08:14)
[2017-12-16] MEDS: Ferrous Sulfate 325 MG TAB PO SCH ×2 (08:15→17:47)
[2017-12-16] MEDS: Ethambutol HCl 400 MG TAB PO SCH (08:15)
[2017-12-16] MEDS: Famotidine 20 MG TAB PO SCH ×2 (08:15→20:59)
[2017-12-16] MEDS: Enoxaparin Sodium 40 MG/0.4 ML SYRINGE SC SCH (08:15)
[2017-12-16] MEDS: Fish Oil 1,000 MG CAP PO SCH (08:15)
[2017-12-16] MEDS: Ascorbic Acid 500 mg Chewable Tablet PO SCH (08:15)
[2017-12-16] MEDS: pyridOXINE 50 MG (B6) TAB PO SCH (08:16)
[2017-12-16] MEDS: Pyrazinamide 500 MG TAB PO SCH (08:16)
[2017-12-16] MEDS: Polyethylene Glycol 3350 17 GM Packet PO SCH (08:16)
[2017-12-16] MEDS: Rifampin 300 MG CAP PO SCH (08:16)
[2017-12-16 17:13] LABS: A/G Ratio 0.7 (0.7-1.7); Albumin 3.1 g/dL (2.9-4.4); Alpha 1 0.4 g/dL (0.0-0.4); Alpha 2 0.7 g/dL (0.4-1.0); Gamma 2.1 g/dL (0.4-1.8); Globulin, Total 4.2 g/dL (2.2-3.9); M-Spike Not Observed g/dL (Not Observed)
[2017-12-16] MEDS: Melatonin 3 MG TAB PO PRN (20:59)
[2017-12-16] MEDS: Mirtazapine 30 MG TAB PO SCH (20:59)
[2017-12-17] MEDS: traMADol HCl 50 MG TAB PO SCH ×4 (04:37→20:57)
[2017-12-17] MEDS: Enoxaparin Sodium 40 MG/0.4 ML SYRINGE SC SCH (08:21)
[2017-12-17] MEDS: Polyethylene Glycol 3350 17 GM Packet PO SCH (08:21)
[2017-12-17] MEDS: Ascorbic Acid 500 mg Chewable Tablet PO SCH (08:21)
[2017-12-17] MEDS: Famotidine 20 MG TAB PO SCH ×2 (08:21→20:57)
[2017-12-17] MEDS: Fish Oil 1,000 MG CAP PO SCH (08:21)
[2017-12-17] MEDS: pyridOXINE 50 MG (B6) TAB PO SCH (08:21)
[2017-12-17] MEDS: Rifampin 300 MG CAP PO SCH (08:21)
[2017-12-17] MEDS: Ferrous Sulfate 325 MG TAB PO SCH ×2 (08:21→16:04)
[2017-12-17] MEDS: Ethambutol HCl 400 MG TAB PO SCH (08:22)
[2017-12-17] MEDS: Isoniazid 100 MG TAB PO SCH (08:22)
[2017-12-17] MEDS: Pyrazinamide 500 MG TAB PO SCH (08:22)
[2017-12-17] MEDS: Sodium Chloride 0.9% 1,000 ML IV SCH (08:24)
--- NOTE | 2017-12-17 18:07 | PRG ---
DATE OF SERVICE: 12/16/2017 SUBJECTIVE: [facility] did not return today and unsure why they are not here. We will con tinue IV fluids as potassium and calcium are improving. OBJECTIVE: Show sodium 138, potassium 3.5, chloride 110, bicarbonate 20, BUN 16, creatinine 0.96, gl ucose 191, calcium 11.4. LUNGS: Clear. CARDIAC: Shows regular rhythm. ASSESSMENT: Resolving hypokalemia and hypercalcemia. Stable reactivation TB with negative sputum x3 . PLAN: We will discuss with [facility].
--- NOTE | 2017-12-17 18:11 | PRG ---
DATE OF SERVICE: 12/17/2017 SUBJECTIVE: The patient feels well, is ready to be discharged. OBJECTIVE: [facility], states that the sputums needed to be documented on separate days an d this has been done and therefore they will clear him for discharge tomorrow hopefully. Calcium is down to 11.0. OBJECTIVE: LUNGS: Clear with decreased breath sounds. CARDIAC: Shows regular rhythm. SKIN: Shows atrophy, but no erythema or warmth or edema. ASSESSMENT: 1. Reactivation tuberculosis resolving on 4-drug drug therapy. 2. Hypercalcemia, possibly due to tuberculosis with vitamin D level returning normal at 43. PLAN: Continue IV normal saline with potassium until discharge tomorrow. Discharge to [facility] if okay with [facility].
[2017-12-17] MEDS: NS 0.9% w/ 20 MEQ KCL 1,000 ML/1,000 ML BAG IV SCH ×2 (18:38→21:04)
--- NOTE | 2017-12-17 20:11 | PRG ---
DATE OF SERVICE: 12/17/2017 SUBJECTIVE: The patient lying in bed, feels well and is weak, but is having increasing appetite. No nausea and vomiting, is having IV fluids run to treat his hypercalcemia. OBJECTIVE: VITAL SIGNS: Temperature is 97.9, pulse 74, respirations 20, O2 sats 95% on room air. LUNGS: Clear. CARDIAC: Shows regular rhythm. LABORATORY DATA: Shows sodium 142, potassium 2.9, chloride 111, bicarbonate 20, BUN 17, creatinine 1 .09, calcium 11.3. ASSESSMENT AND PLAN: 1. Hypercalcemia improved with IV fluids 2. Hypokalemia. We will continue with IV normal saline at 75 mL an hour with . 3. Reactivation TB with negative AFB x3 and will discuss with for discharge home.
[2017-12-17] MEDS: Mirtazapine 30 MG TAB PO SCH (20:58)
[2017-12-18] MEDS: traMADol HCl 50 MG TAB PO SCH ×4 (05:05→21:01)
[2017-12-18] MEDS: Isoniazid 100 MG TAB PO SCH (07:42)
[2017-12-18] MEDS: Pyrazinamide 500 MG TAB PO SCH (08:43)
[2017-12-18] MEDS: Enoxaparin Sodium 40 MG/0.4 ML SYRINGE SC SCH (08:43)
[2017-12-18] MEDS: Ethambutol HCl 400 MG TAB PO SCH (08:43)
[2017-12-18] MEDS: Ascorbic Acid 500 mg Chewable Tablet PO SCH (08:44)
[2017-12-18] MEDS: Ferrous Sulfate 325 MG TAB PO SCH ×2 (08:44→16:45)
[2017-12-18] MEDS: Rifampin 300 MG CAP PO SCH (08:44)
[2017-12-18] MEDS: Fish Oil 1,000 MG CAP PO SCH (08:44)
[2017-12-18] MEDS: Famotidine 20 MG TAB PO SCH ×2 (08:44→21:01)
[2017-12-18] MEDS: pyridOXINE 50 MG (B6) TAB PO SCH (08:45)
[2017-12-18] MEDS: Polyethylene Glycol 3350 17 GM Packet PO SCH (08:45)
[2017-12-18] MEDS: NS 0.9% w/ 20 MEQ KCL 1,000 ML/1,000 ML BAG IV SCH ×2 (08:47→21:01)
[2017-12-18] MEDS: Mirtazapine 30 MG TAB PO SCH (21:01)
[2017-12-19] MEDS: traMADol HCl 50 MG TAB PO SCH ×4 (03:41→21:25)
[2017-12-19] MEDS: Rifampin 300 MG CAP PO SCH (09:52)
[2017-12-19] MEDS: Fish Oil 1,000 MG CAP PO SCH (09:52)
[2017-12-19] MEDS: Ascorbic Acid 500 mg Chewable Tablet PO SCH (09:52)
[2017-12-19] MEDS: Ferrous Sulfate 325 MG TAB PO SCH ×2 (09:53→17:53)
[2017-12-19] MEDS: Ethambutol HCl 400 MG TAB PO SCH (09:53)
[2017-12-19] MEDS: Famotidine 20 MG TAB PO SCH ×2 (09:53→21:24)
[2017-12-19] MEDS: Enoxaparin Sodium 40 MG/0.4 ML SYRINGE SC SCH (09:54)
[2017-12-19] MEDS: Pyrazinamide 500 MG TAB PO SCH (09:54)
[2017-12-19] MEDS: pyridOXINE 50 MG (B6) TAB PO SCH (09:54)
[2017-12-19] MEDS: Isoniazid 100 MG TAB PO SCH (09:55)
[2017-12-19] MEDS: Polyethylene Glycol 3350 17 GM Packet PO SCH (09:57)
[2017-12-19] MEDS: NS 0.9% w/ 20 MEQ KCL 1,000 ML/1,000 ML BAG IV SCH (10:49)
--- NOTE | 2017-12-19 18:03 | PRG ---
DATE OF SERVICE: 12/19/2017 SUBJECTIVE: The patient has no change. Feels weak in the bed with no complaints of shortness of gustabo ath or chest pain. He has been eating fair. The retirement was still not accepted patient and is having financial reevaluation. OBJECTIVE: VITAL SIGNS: Show blood pressure of 124/75, temperature 97, pulse 66, respirations 16, O2 sats 96% o n room air. LUNGS: Clear. Decreased breath sounds. CARDIAC: Examination showed regular rhythm. No gallops or murmurs. ABDOMEN: Soft and nontender with no masses or organomegaly. SKIN/EXTREMITIES: Display no edema, clubbing, cyanosis, but atrophy. ASSESSMENT: 1. Resolving, reactivation TB, on 4-drug therapy. 2. Hypercalcemia, improved with IV fluids and we will repeat CBC, comp metabolic now. 3. Severe deconditioning with minimal improvement. 4. Incomplete quadriplegia, chronic for years, stable. PLAN: Discontinue IV. Repeat CBC and comp metabolic. Discussed discharge planning and may need to discharge home.
--- NOTE | 2017-12-19 19:04 | PRG ---
DATE OF SERVICE: 12/18/2017 SUBJECTIVE: The patient has had 3 negative sputum and apparently is ready for discharge, but has not been evaluated by [facility] as yet for acceptance today and should come today. OBJECTIVE: VITAL SIGNS: Temperature is 98, pulse 75, respirations 18, O2 sats 95% on room air, blood pressure 1 43/82. LUNGS: Decreased breath sounds in the bases. CARDIAC: Regular rhythm. ABDOMEN: Soft and nontender. SKIN AND EXTREMITIES: Displayed atrophy with some clubbing. No cyanosis. He will be treated with s ome clubbing. ASSESSMENT: 1. Reactivation tuberculosis on 4-drug therapy with no evidence of effectivity. 2. Hypercalcemia, improved with IV fluids, most likely related to tuberculosis and dehydration, and we will repeat tomorrow. 3. Hypokalemia, resolved on supplemental potassium. We will continue. 4. Severe deconditioning, appears to have stabilized. 5. Incomplete quadriplegia, chronic with no real change. PLAN: Transfer to [facility] tomorrow. Continue 4-drug therapy followed by [facility]. Continue IV until discharge.
[2017-12-19 20:11] LABS: #Basophils 0.1 thou/uL (0.0-0.2); #Eosinphils 0.3 thou/uL (0.0-0.7); #Lymphocytes 1.5 thou/uL (1.20-3.40); #Monocytes 0.5 thou/uL (0.11-0.59); #Neutrophils 6.5 thou/uL (1.40-6.50); %Basophils 0.8 % (0.0-1.0); %Eosinophils 3.8 % (0.0-10.0); %Lymphocytes 17.3 % (21.0-51.0); %Monocytes 5.3 % (0.0-10.0); %Neutrophils 72.8 % (42.0-75.0); Hemoglobin 11.5 g/dL (14.0-18.0); Mean Corpuscular HGB CONC 30.2 g/dL (32.0-36.0); Mean Corpuscular Hemoglobin 21.4 pg (27.0-31.0); Mean Corpuscular Volume 70.8 fL (78.0-98.0); Platelet Count 379 thou/uL (130-400); RBC Distribution Width 18.2 % (11.5-14.5); Red Blood Cell (RBC) Count 5.39 mill/uL (4.70-6.10); White Blood Cell (WBC) Count 8.9 thou/uL (4.8-10.8)
[2017-12-19 20:20] LABS: ALT (SGPT) 16 U/L (8-55); AST (SGOT) 26 U/L (5-34); Albumin 2.9 g/dL (3.5-5.0); Alkaline Phosphatase 104 U/L (40-150); Anion Gap 14 mmol/L (10-20); BUN (Urea Nitrogen) 18 mg/dL (8.4-25.7); Bilirubin, Total 0.4 mg/dL (0.2-1.2); Calc. Creatinine Clearance 56 mL/min (70-130); Calcium 10.7 mg/dL (7.8-10.44); Carbon Dioxide 20 mmol/L (22-29); Chloride 106 mmol/L (98-107); Estimated GFR-MDRD 75; Globulin 4.8 g/dL (2.4-3.5); Glucose 144 mg/dL (70-105); Potassium 3.7 mmol/L (3.5-5.1); Protein, Total 7.7 g/dL (6.0-8.3); Sodium 136 mmol/L (136-145)
[2017-12-19] MEDS: Melatonin 3 MG TAB PO PRN (21:24)
[2017-12-19] MEDS: Mirtazapine 30 MG TAB PO SCH (21:24)
[2017-12-20] MEDS: traMADol HCl 50 MG TAB PO SCH ×4 (03:32→21:29)
[2017-12-20] MEDS: Isoniazid 100 MG TAB PO SCH (08:06)
[2017-12-20] MEDS: Ethambutol HCl 400 MG TAB PO SCH (08:06)
[2017-12-20] MEDS: Ferrous Sulfate 325 MG TAB PO SCH ×2 (08:06→16:35)
[2017-12-20] MEDS: Ascorbic Acid 500 mg Chewable Tablet PO SCH (08:06)
[2017-12-20] MEDS: Pyrazinamide 500 MG TAB PO SCH (08:07)
[2017-12-20] MEDS: Fish Oil 1,000 MG CAP PO SCH (08:07)
[2017-12-20] MEDS: pyridOXINE 50 MG (B6) TAB PO SCH (08:07)
[2017-12-20] MEDS: Polyethylene Glycol 3350 17 GM Packet PO SCH (08:07)
[2017-12-20] MEDS: Famotidine 20 MG TAB PO SCH ×2 (08:07→21:26)
[2017-12-20] MEDS: Enoxaparin Sodium 40 MG/0.4 ML SYRINGE SC SCH (08:07)
[2017-12-20] MEDS: Rifampin 300 MG CAP PO SCH (08:08)
--- NOTE | 2017-12-20 16:16 | PRG ---
DATE OF SERVICE: 12/20/2017 SUBJECTIVE: Mr. Matson is resting comfortably. He is off his isolation. He is stable for discharge but pending insurance, so that he can be placed in a nursing facility. OBJECTIVE: VITAL SIGNS: He is afebrile, heart rate 73, respirations 18, oxygen saturation 96% on room air, bloo d pressure is 114/79. CARDIOVASCULAR: S1, S2 plus. RESPIRATORY SYSTEM: Normal vesicular breath sounds. ABDOMEN: Soft, nontender, bowel sounds heard in all quadrants. EXTREMITIES: Without cyanosis or clubbing. Peripheral pulses are palpable. IMPRESSION: 1. Tuberculosis on treatment. 2. Dyslipidemia. 3. Resolved spontaneous pneumothorax. 4. Deconditioning. 5. 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 PLAN: 1. Continue current medications. 2. Nutritional support. 3. DVT and stress ulcer prophylaxis. 4. Decubitus precautions. 5. Discharge planning.
[2017-12-20] MEDS: Mirtazapine 30 MG TAB PO SCH (21:26)
[2017-12-20] MEDS: Melatonin 3 MG TAB PO PRN (21:26)
[2017-12-21] MEDS: traMADol HCl 50 MG TAB PO SCH ×4 (04:00→23:24)
[2017-12-21] MEDS: Ferrous Sulfate 325 MG TAB PO SCH ×2 (08:03→16:57)
[2017-12-21] MEDS: Isoniazid 100 MG TAB PO SCH (08:03)
[2017-12-21] MEDS: Ethambutol HCl 400 MG TAB PO SCH (08:03)
[2017-12-21] MEDS: Ascorbic Acid 500 mg Chewable Tablet PO SCH (08:03)
[2017-12-21] MEDS: Polyethylene Glycol 3350 17 GM Packet PO SCH (08:04)
[2017-12-21] MEDS: pyridOXINE 50 MG (B6) TAB PO SCH (08:04)
[2017-12-21] MEDS: Rifampin 300 MG CAP PO SCH (08:04)
[2017-12-21] MEDS: Famotidine 20 MG TAB PO SCH ×2 (08:04→21:09)
[2017-12-21] MEDS: Pyrazinamide 500 MG TAB PO SCH (08:04)
[2017-12-21] MEDS: Enoxaparin Sodium 40 MG/0.4 ML SYRINGE SC SCH (08:04)
[2017-12-21] MEDS: Fish Oil 1,000 MG CAP PO SCH (08:04)
--- NOTE | 2017-12-21 11:29 | RAD ---
PORTABLE FRONTAL CHEST: Date: 12/21/17 PROVIDED CLINICAL HISTORY: TB follow-up. FINDINGS: Comparison with 11/28/17. There is interval increase in pleural and/or parenchymal opacity involving predominantly the left hem ithorax. Fibrocavitary changes involving both lung apices appear similar. Cardiac and mediastinal amari houette is not definitely changed in appearance. IMPRESSION: Prominent interval increase in left hemithoracic pleural and/or parenchymal opacity. POS: [facility]
[2017-12-21 15:12] LABS: ALT (SGPT) 17 U/L (8-55); AST (SGOT) 28 U/L (5-34); Alkaline Phosphatase 116 U/L (40-150); Bilirubin, Direct 0.4 mg/dL (0.1-0.3); Bilirubin, Total 0.6 mg/dL (0.2-1.2); Protein, Total 7.9 g/dL (6.0-8.3)
--- NOTE | 2017-12-21 15:59 | PRG ---
DATE OF SERVICE: 12/21/2017 SUBJECTIVE: Mr. Matson is doing the same, apparently some facility at the [facility] wants him to have a liver panel and chest x-ray and that has been ordered, still pending discharge p sherita. OBJECTIVE: VITAL SIGNS: He is afebrile, heart rate 74, respirations 18, oxygen saturation 95% on room air, bloo d pressure 104/71. CARDIOVASCULAR: S1, S2 plus. RESPIRATORY SYSTEM: Normal vesicular breath sounds. ABDOMEN: Soft and nontender. Bowel sounds heard in all quadrants. EXTREMITIES: Without cyanosis or clubbing. Peripheral pulses are palpable. CENTRAL NERVOUS SYSTEM: Chronic lower extremity weakness. His AST and ALT are actually were normal on the . IMPRESSION: 1. Tuberculosis, on appropriate treatment. 2. Dyslipidemia. 3. Deconditioning. 4. Lower extremity weakness due to chronic spinal cord lesion. PLAN: 1. Continue current medications. 2. Liver panel and chest x-ray. 3. DVT and stress ulcer prophylaxis. 4. Decubitus precautions. 5. Therapy. 6. Nutritional support. 7. Discharge planning. His chest x-ray done this morning shows prominent interval increase weeks and left hemithoracic pleur al and/or parenchymal opacity. Fibrocavitary changes in both apices are similar but clinically he is doing well, so I am not sure what to make of this finding. We will discuss with his primary doctor, Dr. Horne and see if he may need a CT scan.
[2017-12-21] MEDS: Mirtazapine 30 MG TAB PO SCH (21:09)
[2017-12-21] MEDS: Melatonin 3 MG TAB PO PRN (21:09)
[2017-12-22] MEDS: traMADol HCl 50 MG TAB PO SCH ×4 (05:27→20:36)
[2017-12-22] MEDS: Ferrous Sulfate 325 MG TAB PO SCH ×2 (08:02→17:32)
[2017-12-22] MEDS: Ascorbic Acid 500 mg Chewable Tablet PO SCH (08:02)
[2017-12-22] MEDS: Fish Oil 1,000 MG CAP PO SCH (08:02)
[2017-12-22] MEDS: Enoxaparin Sodium 40 MG/0.4 ML SYRINGE SC SCH (08:02)
[2017-12-22] MEDS: Rifampin 300 MG CAP PO SCH (08:02)
[2017-12-22] MEDS: Polyethylene Glycol 3350 17 GM Packet PO SCH (08:03)
[2017-12-22] MEDS: Famotidine 20 MG TAB PO SCH ×2 (08:03→20:36)
[2017-12-22] MEDS: pyridOXINE 50 MG (B6) TAB PO SCH (08:03)
[2017-12-22] MEDS: Pyrazinamide 500 MG TAB PO SCH (08:04)
[2017-12-22] MEDS: Isoniazid 100 MG TAB PO SCH (08:04)
[2017-12-22] MEDS: Ethambutol HCl 400 MG TAB PO SCH (08:04)
[2017-12-22] MEDS: Mirtazapine 30 MG TAB PO SCH (20:36)
[2017-12-23] MEDS: traMADol HCl 50 MG TAB PO SCH ×2 (04:42→11:28)
--- NOTE | 2017-12-23 07:35 | PRG ---
DATE OF SERVICE: 12/22/2017 SUBJECTIVE: The patient feels well. No complaints, lying in bed, waiting for transfer to [facility]. Has been accepted by [facility] at this time, but there is some question of recurrent fluid in his c hest. I have discussed the case with Dr. Johnson and feels there is fluid there, but we would not dr constantine rios unless [facility] feels that this is necessary for diagnosis, as he is on 4-dr ug therapy and doing well. OBJECTIVE: VITAL SIGNS: Shows temperature is 97, pulse 81, respirations 18, O2 sat is 96% on room air, blood pr essure 113/75. LUNGS: Show decreased breath sounds in the left base. CARDIAC EXAMINATION: Regular rhythm. ABDOMEN: Soft and nontender. ASSESSMENT: 1. Reactivation tuberculosis with probable recurrent pleural effusion, on 4-drug therapy, tolerating well 2. Severe deconditioning with minimal improvement with PT and OT. 3. Incomplete quadriplegia, chronic for many years. PLAN: Discuss with [facility] to see if they require a thoracentesis prior to transf er to [facility], who has accepted the patient as that he is stable on 4-drug therapy with no evidence of infection at this time with 3 negative sputum.
[2017-12-23] MEDS: Isoniazid 100 MG TAB PO SCH (07:42)
[2017-12-23] MEDS: Famotidine 20 MG TAB PO SCH (08:41)
[2017-12-23] MEDS: Enoxaparin Sodium 40 MG/0.4 ML SYRINGE SC SCH (08:41)
[2017-12-23] MEDS: pyridOXINE 50 MG (B6) TAB PO SCH (08:41)
[2017-12-23] MEDS: Fish Oil 1,000 MG CAP PO SCH (08:41)
[2017-12-23] MEDS: Rifampin 300 MG CAP PO SCH (08:41)
[2017-12-23] MEDS: Ferrous Sulfate 325 MG TAB PO SCH (08:41)
[2017-12-23] MEDS: Ascorbic Acid 500 mg Chewable Tablet PO SCH (08:42)
[2017-12-23] MEDS: Polyethylene Glycol 3350 17 GM Packet PO SCH (08:42)
[2017-12-23] MEDS: Pyrazinamide 500 MG TAB PO SCH (08:42)
[2017-12-23] MEDS: Ethambutol HCl 400 MG TAB PO SCH (08:42)
[2017-12-23 09:48] VITALS: BP 114/66; TEMP 98.2
--- NOTE | 2017-12-23 15:14 | DIS ---
DATE OF ADMISSION: To skilled unit, 11/28/2017 DATE OF DISCHARGE: Transfer to [facility], 12/23/2017 FINAL DIAGNOSES: 1. 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 2. Hyperlipidemia. 3. 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 4. Hypercalcemia. 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 He was admitted to [facility] in October, started on physical therapy. He had a chest tube placed and was initia lly transferred to [facility] for physical therapy. The patient and his family felt he could be discharged home. He was discharged home. He got progressively worse. They took him back to [facility] where they removed his chest tube, as he did not appear to have any problem with current pne umothorax and was admitted to [facility] again on 11/28/2017 for therapy. He has been m aintained on his 4-drug antituberculous therapy with no complications. Normal liver functions, but h as been progressing very poorly with physical therapy, most likely due to his long-term incomplete qu adriplegia, and I am unsure how active he was before this acute illness. He did not have any respira tory distress during his hospitalization here. He did have 3 negative sputum for AFB, and therefore, was cleared to be discharged home or to the skilled nursing, and the family stated they could not take care of him at home, and therefore, he was arranged to be transferred to [facility] for f urther care. He did develop a secondary problem of recurrent hypercalcemia, which was felt to be rel ated to a combination of dehydration and the TB. This was treated with IV fluids and resolved with t he calcium going down to 10.7. Sodium from a high of 13.4 after initial evaluation of 9.9. His othe r electrolytes were sodium of 136, potassium 3.7, chloride 106, bicarbonate 20, BUN was 18, creatinin e 1.03, glucose was 144, albumin remained low at 2.9-3. The entire hospitalization, he was eating ve ry poorly, but the family and he refused PEG tube placement. His prognosis is poor and he and the darek miller understand this. He is somewhat depressed about this, but is accepting transfer to [facility]. On discharge, he is taking vitamin D 2000 units daily, melatonin 3 mg at night as needed , Tylenol 650 mg every 4 hours as needed, vitamin C 1000 mg daily, Tums 1000 mg every 4 hours, docusa te 100 mg twice daily, ethambutol 800 mg daily, Pepcid 20 mg twice daily, ferrous sulfate 325 mg twic e daily, fish oil 1000 mg daily, INH 300 mg daily, Remeron 30 mg nightly, MiraLax 17 grams daily, pyr azinamide 1500 mg daily, pyridoxine 50 mg daily, rifampin 600 mg daily. He will be seen by Dr. Shaquille riojas, his airfreight operations agent, in 2-3 weeks. He will be followed at [facility] by Dr. Padilla and we will discu ss this with him.
== END 2017-12-23 14:03 | DRG 177 ==
LOC: NAV ACUTE 15:43
PROVIDERS: ADMIT Internal Medicine; ATTEND Internal Medicine
DX: A15.9 Respiratory tuberculosis unspecified (principal); G82.50 Quadriplegia, unspecified; G95.9 Disease of spinal cord, unspecified; N17.9 Acute kidney failure, unspecified; E78.5 Hyperlipidemia, unspecified; Z99.3 Dependence on wheelchair; R60.0 Localized edema; E83.52 Hypercalcemia; E87.6 Hypokalemia; E86.0 Dehydration
CPT/HCPCS: 36415; 71045; 72128; 72131; 80048; 80053; 80076; 82306; 82310; 83970; 84100; 84165; 85025; 87116; 87206; G8978-GP-CN; G8979-GP-CM; J1650; J7050; J7620